=== PATIENT | female | born 1950 | race Caucasian/White ===

== ENCOUNTER 2019-10-22 19:11 | Inpatient (IN) | payer MEDICARE, OTHER ==
[~2019-10-22] VITALS: Ht 172.7 cm; Wt 100.5 kg
--- NOTE | 2019-10-22 19:11 | NUR ---
PT BIBPA SENT BY PMD FOR ABN LABS K-5.4, BUN-99, CA-8.2 AND ABN CXR. PT ON TRACH AND VENT DEPENDENT. NONVERBAL BASELINE. PT ON MONITOR IN BED 8. MD AT BEDSIDE. WILL CONTINUE TO MONITOR.
--- NOTE | 2019-10-22 19:48 | NUR ---
TECH AT BEDSIDE FOR EKG
--- NOTE | 2019-10-22 19:54 | NUR ---
FAMILY AT BEDSIDE
--- NOTE | 2019-10-22 19:57 | NUR ---
PHLEB AT BEDSIDE FOR BLOOD DRAW
[2019-10-22 20:09] LABS: BASOPHILS # (AUTO) 0.2 /CMM (0.0-0.2); BASOPHILS % (AUTO) 1.3 % (0.0-2.0); EOSINOPHILS % (AUTO) 0.7 % (0.0-6.0); HEMATOCRIT 29 % (33-45); HEMOGLOBIN 8.3 g/dL (11.5-14.8); LYMPHOCYTES % (AUTO) 5.8 % (20.0-44.0); MEAN CORPUSCULAR HGB CONC 29 g/dl (31.0-36.0); MEAN CORPUSCULAR VOLUME 81 fL (82-100); MONOCYTES % (AUTO) 5.9 % (2.0-12.0); NEUTROPHILS # (AUTO) 14.3 /CMM (1.8-8.9); NEUTROPHILS % (AUTO) 86.3 % (43.0-81.0); PLATELET COUNT (AUTO) 397 /CMM (150-450); RED BLOOD CELL COUNT(AUTO) 3.55 MIL/uL (4.0-5.2); WHITE BLOOD COUNT (AUTO) 16.6 K/uL (4.3-11.0)
[2019-10-22 20:27] LABS: BILIRUBIN,DIRECT 0.5 mg/dL (0.0-0.2); BILIRUBIN,TOTAL 0.6 mg/dL (0.2-1.0); CALCIUM, SERUM 7.9 mg/dL (8.5-10.1); CREATININE 0.7 mg/dL (0.6-1.3); POTASSIUM 5.2 mmol/L (3.5-5.1); TOTAL PROTEIN, SERUM 8.1 g/dL (6.4-8.2)
[2019-10-22 20:28] LABS: ALBUMIN 1.3 g/dL (3.4-5.0)
--- NOTE | 2019-10-22 20:29 | NUR ---
BUN 104. ALBUMIN 1.3. MD AWARE.
--- NOTE | 2019-10-22 20:58 | NUR ---
PAGED CHARLES BOTELLO
[2019-10-22] MEDS ORDERED: ALBUMIN 25% 12.5 GM/50 ML BOTTLE IV ONE ×2 (21:00→22:30)
[2019-10-22] MEDS ORDERED: MEROPENEM 500 MG in IV NS 0.9% 50 ML IV ONE (21:30)
[2019-10-22] MEDS ORDERED: MEROPENEM 500 MG VIAL IV ONE (21:33)
[2019-10-22] MEDS ORDERED: ALBUMIN 25% 100 ML IV ONE ×2 (21:33→23:41)
[2019-10-22 22:12] LABS: APPEARANCE,URINE Clear (CLEAR); BILIRUBIN,URINE Negative (NEGATIVE); BLOOD, URINE Negative Ery/uL (NEGATIVE); COLOR,URINE Yellow (YELLOW); KETONES,URINE Negative (NEGATIVE); LEUKOCYTE ESTERASE ,URINE Negative (NEGATIVE); NITRITE, URINE Negative (NEGATIVE); PH,URINE 5.5 (5.0-8.0); PROTEIN,URINE 30 mg/dl (NEGATIVE); UGLUCOSE Negative (NEGATIVE)
[2019-10-22] MEDS ORDERED: ACETAMINOPHEN 325 MG TABLET PO PRN (22:30)
[2019-10-22] MEDS ORDERED: VANCOMYCIN 2 GM in IV D5W 500 ML IV ONE (22:30)
[2019-10-22] MEDS ORDERED: Z GUARD REMEDY 2 OZ OINT TP PRN (22:30)
[2019-10-22] MEDS ORDERED: BUMETANIDE INJ 6 MG in IV NS 0.9% 36 ML IV ONE (22:30)
[2019-10-22] MEDS ORDERED: ONDANSETRON HCL/PF 4 MG/2 ML VIAL IVP PRN (22:30)
[2019-10-22 22:41] LABS: IRON, SERUM 21 ug/dl (50-175); TOTAL IRON BINDING CAPACITY 219 ug/dl (250-450)
[2019-10-22 23:03] LABS: CREATININE, URINE 31.1 MG/DL (30.0-125.0); URINE TOTAL PROTEIN 46.1 mg/dL (0-11.9)
--- NOTE | 2019-10-22 23:06 | NUR ---
Angie dick in [facility] - 10/22/19 at 2306 by MICHELINE PT TRANSPORTED TO [phone]
--- NOTE | 2019-10-22 23:22 | NUR ---
NURSE AT BEDSIDE FOR MIDLINE INSERTION
[2019-10-22] MEDS ORDERED: VANCOMYCIN 1 GM VIAL ONE (23:57)
--- NOTE | 2019-10-23 00:44 | NUR ---
Patient is resting comfortably in bed. VSS. Will continue to monitor.
--- NOTE | 2019-10-23 00:49 | NUR ---
REPORT GIVEN TO FLOOR NURSE FOR JESSI
[2019-10-23 01:24] VITALS: BP 123/77
--- NOTE | 2019-10-23 01:30 | NUR ---
military police officertowel hemmer notes Received Pt from ER nurse. Pt arrived at the unit with a TALI uribe protocol and [facility]. ventilator. Pt is non verbal and able to open eyes to touch and light pain. Respiration is normal. No SOB. No S/S of distress noted. SHARLENE midline is clean, intact, patent and infusing well vanco abx. Hill cath is intact, patent and draining yellow urine. Skin assessment is done and performed and pictures taken and placed at Pt's chart. Pt's belonging was checked by ALEXIS Cai. Admission orders received from Dr. Grimes. Safety precautions is maintained. Bed at low position, brakes locked, side rails upX3 and call light is within reach. Will continue to monitor.
[2019-10-23 02:00] VITALS: BP 123/77
[2019-10-23] MEDS: ENOXAPARIN SODIUM 40 MG/0.4 ML DISP.SYRIN SQ SCH ×2 (02:00→20:33)
--- NOTE | 2019-10-23 02:00 | NUR ---
rocket engine tester notes Received Pt from ER at 0130 am. Administered lovenox 40 mg as ordered. Call semiconductor wafers marker pharmacy Robert to verified lovenox 40 mg. Will continue to monitor.
--- NOTE | 2019-10-23 03:00 | NUR ---
operator weapon locating radar notes Informed and notified to Dr. Grimes about Pt's blood glucose check. Awaiting for orders. Will continue to monitor.
--- NOTE | 2019-10-23 03:20 | NUR ---
girls tennis coach notes Informed Dr. Grimes about Pt's G-tube is leaking.
--- NOTE | 2019-10-23 03:36 | NUR ---
automobile engine assembler notes MD order to changed the dressing on g-tube. Changed g-tube dressing. Pt tolerated activity well. will continue to monitor.
[2019-10-23 04:00] VITALS: BP 108/56
[2019-10-23] MEDS ORDERED: DEXTROSE 50%-WATER 50 ML DISP.SYRIN IV PRN (04:00)
[2019-10-23] MEDS ORDERED: MEROPENEM 1 G in IV NS 0.9% 100 ML IV ONE (05:00)
[2019-10-23] MEDS ORDERED: MEROPENEM 1 G in IV NS 0.9% 100 ML IV SCH (05:00)
[2019-10-23] MEDS ORDERED: MEROPENEM 1 G VIAL IV ONE (05:09)
[2019-10-23 06:36] LABS: BASOPHILS % (AUTO) 0.2 % (0.0-2.0); EOSINOPHILS % (AUTO) 0.7 % (0.0-6.0); HEMATOCRIT 25 % (33-45); HEMOGLOBIN 7.5 g/dL (11.5-14.8); LYMPHOCYTES % (AUTO) 5.6 % (20.0-44.0); MEAN CORPUSCULAR HGB CONC 30 g/dl (31.0-36.0); MEAN CORPUSCULAR VOLUME 80 fL (82-100); MONOCYTES % (AUTO) 5.4 % (2.0-12.0); NEUTROPHILS # (AUTO) 15.9 /CMM (1.8-8.9); NEUTROPHILS % (AUTO) 88.1 % (43.0-81.0); PLATELET COUNT (AUTO) 396 /CMM (150-450); RED BLOOD CELL COUNT(AUTO) 3.15 MIL/uL (4.0-5.2)
[2019-10-23] MEDS: BLOOD SUGAR DIAGNOSTIC 1 EACH STRIP IN SCH ×4 (06:40→21:27)
--- NOTE | 2019-10-23 06:50 | NUR ---
airport engineer notes Pt blood sugar is 143. No coverage is given because Pt's NPO due to G-tube is leaking. MD is aware. Charge nurse is aware and notified.
[2019-10-23 06:59] LABS: THYROID STIMULATING HORMONE 3.585 uIU/mL (0.358-3.74)
--- NOTE | 2019-10-23 07:00 | NUR ---
inking machine tender closing notes Pt is resting in bed comfortably. Respiration is normal. Pt is on mec. ventilator. No SOB. No S/s of distress noted. SHARLENE midline# 20 is clean, intact, patent and SL. Routine meds were given as ordered. VS is stable. Kept Pt clean, dry and comfortable. Safety precautions is maintained. Bed at low position, brakes locked, side rails upX3 and call light is within reach. Will endorse to morning nurse for JESSI.
[2019-10-23 07:10] LABS: ALBUMIN 1.8 g/dL (3.4-5.0); CALCIUM, SERUM 7.8 mg/dL (8.5-10.1); CREATININE 0.8 mg/dL (0.6-1.3); MAGNESIUM 2.9 mg/dL (1.8-2.4); POTASSIUM 3.9 mmol/L (3.5-5.1); TOTAL PROTEIN, SERUM 7.5 g/dL (6.4-8.2)
--- NOTE | 2019-10-23 07:15 | NUR ---
PLANNER SCHEDULER OPENING NOTES RECEIVED PATIENT IN BED ASLEEP, AROUSABLE TO VERBAL AND TACTILE STIMULI. HOB ELEVATED. NO S/S OF RESPIRATORY DISTRESS. ON TELE MONITORING A-FIB RATE OF 91. NO EVIDENCE OF PAIN NOR DISCOMFORT. GRADY CATH INTACT AND PATENT DRAINING YELLOW COLORED URINE VIA BEDSIDE. ON MECHANICAL VENT ORDERED ARNALDO WELL. BED IN LOWEST POSITION, LOCKED. SHARLENE MIDLINE INTACT AND PATENT. CALL LIGHT WITHIN REACH. BED SIDERAILS UP X2.
[2019-10-23] MEDS ORDERED: BLOOD SUGAR DIAGNOSTIC 1 EACH STRIP IN SCH (07:30)
[2019-10-23 07:33] LABS: BAND % (MANUAL) 5 % (0.0-5.0); EOSINOPHILS % (MANUAL) 1 % (0-4); LYMPHOCYTES % (MANUAL) 5 % (16-48); METAMYELOCYTES % 1 % (0-0); MONOCYTES % (MANUAL) 7 % (0-11.0); MYELOCYTES % 3 % (0-0); NEUTROPHILS % (MANUAL) 77 (42-76); PROMYELOCYTES % 1 % (0-0)
[2019-10-23 08:00] VITALS: BP 108/53
[2019-10-23] MEDS ORDERED: CHLO473M5 MM (08:25)
[2019-10-23] MEDS ORDERED: HYDR-4354 GT (08:25)
[2019-10-23] MEDS ORDERED: INSU100V3 SQ (08:25)
[2019-10-23] MEDS ORDERED: NUTR1PAC14 GT (08:25)
[2019-10-23] MEDS ORDERED: NUT.237L31 GT (08:25)
[2019-10-23] MEDS ORDERED: HEPA50008 SQ (08:25)
[2019-10-23] MEDS ORDERED: HYDR4TAB57 GT (08:25)
[2019-10-23] MEDS ORDERED: LEVA0.6320 IH ×2 (08:25)
[2019-10-23] MEDS ORDERED: BISA10SU11 RC (08:25)
[2019-10-23] MEDS ORDERED: CHLO118L6 TP (08:25)
[2019-10-23] MEDS ORDERED: NA P133E RC (08:25)
[2019-10-23] MEDS ORDERED: LEVE100S GT (08:25)
[2019-10-23] MEDS ORDERED: OMEP20CA15 GT (08:25)
[2019-10-23] MEDS ORDERED: FERR300L GT (08:25)
[2019-10-23] MEDS ORDERED: AMIN30LI2 GT (08:25)
[2019-10-23] MEDS ORDERED: DOCU250C14 GT (08:25)
[2019-10-23] MEDS ORDERED: METO5SOL2 GT (08:25)
[2019-10-23] MEDS ORDERED: DIGO125T GT (08:25)
[2019-10-23] MEDS ORDERED: VIT500LI GT (08:25)
[2019-10-23] MEDS ORDERED: LORA-259 GT (08:25)
[2019-10-23] MEDS ORDERED: FURO-144 GT (08:25)
[2019-10-23] MEDS ORDERED: METO25TA20 GT (08:25)
[2019-10-23] MEDS ORDERED: MAGN400O6 GT (08:25)
[2019-10-23] MEDS ORDERED: PHEN64.8 GT (08:25)
[2019-10-23] MEDS ORDERED: MULT-447 GT (08:25)
[2019-10-23 09:37] LABS: ABG BASE EXCESS 7.5 mmol/L; ABG OXYGEN SATURATION 97.2 % (92.0-98.5); ABG PCO2 43.2 mmHg (35.0-45.0); ABG PH 7.483 (7.350-7.450); ABG PO2 103.2 mmHg (75.0-100.0); AaDO2 132.3 mmHg; COHb 0.5 % (0.5-1.5); MetHb 0.5 % (0.0-1.5); O2Hb 96.2 % (94.0-97.0); SITE, ABG Left Radial; VENT MODE, BG AC 18 450 40% +5
--- NOTE | 2019-10-23 11:25 | NUR ---
WOUND CARE CONSULT: PT PRESENTS WITH SACRAL SCARRING AND GENERALIZED EDEMA, LEAKING G TUBE (CLAMPED) AND BLANCHABLE REDNESS TO HEELS, PRESENT ON ADMISSION. RECOMMENDATIONS MADE FOR SKIN PROTECTION. DISCUSSED WITH NURSING STAFF. RN TO DISCUSS G TUBE WITH MD TODAY. PT NOTED TO BE HAVING VERY LOOSE STOOL. FIRST STEP LOW AIRLOSS MATTRESS ORDERED. CURRENT ERASTO SCORE IS 11. WILL SEE PRN. MD IN AGREEMENT WITH PLAN OF CARE. Addendum: 10/23/19 at 1126 by FERNANDO HUERTA WNDNU Amended: Links added.
[2019-10-23] MEDS: MEROPENEM 1 G in IV NS 0.9% 100 ML IV SCH ×2 (12:45→20:33)
--- NOTE | 2019-10-23 13:24 | NUR ---
NO CONSENT SIGNED AT THIS TIME, INFORMED RN THAT THE PTOCEDURE WILL BE DONE TOMORROW, TO HOLD THE LOVENOX TODAY
[2019-10-23] MEDS ORDERED: FEE PK DOSING 1 MIN EA MC ONE (13:34)
[2019-10-23] MEDS ORDERED: Sodium Phosphate 15 MMOL in IV D5W 250 ML IV ONE (14:00)
[2019-10-23 16:00] VITALS: BP 99/71
--- NOTE | 2019-10-23 18:52 | NUR ---
DOCUMENTATION LIAISON CLOSING NOTES PATIENT ASLEEP IN BED, AROUSABLE TO VERBAL AND TACTILE STIMULI. OPENS EYES. HOB ELEVATED. NO SOB. ON TELE MONITORING A-FIB RATE OF 90. NO EVIDENCE OF PAIN NOR DISCOMFORT. GRADY CATH INTACT AND PATENT DRAINING YELLOW COLORED URINE VIA BEDSIDE. RECTAL TUBE INTACT WITH NO BM AT THIS TIME. ON MECHANICAL VENT ORDERED ARNALDO WELL. BED IN LOWEST POSITION, LOCKED. SHARLENE MIDLINE INTACT AND PATENT. CALL LIGHT WITHIN REACH. BED SIDERAILS UP X2. IN NO APPARENT DISTRESS.
[2019-10-23] MEDS: VANCOMYCIN 1.5 GM in IV D5W 500 ML IV SCH (18:56)
--- NOTE | 2019-10-23 19:00 | NUR ---
vehicle care specialist opening notes Received Pt from morning nurse. Pt is resting in bed comfortably. Pt is on [facility]. ventilator as ordered. Respiration is normal. No SOB. No S/S of distress noted. SHARLENE midline# 20 is clean, intact and infusing well. Tele monitor showed a-fib HR at 95. Tube feeding is still leaking. Hill cath is clean, intact, patent and draining yellow urine. Rectal tube is intact and patent. Safety precautions is maintained. Bed at low position, brakes locked, side rails upX3 and call light is within reach. Will continue to monitor.
--- NOTE | 2019-10-23 19:30 | NUR ---
golf coach notes Called Pt's multiple times to get a verbal consent for US guided thoracentesis. Will try again later.
[2019-10-23 20:00] VITALS: BP 104/42
--- NOTE | 2019-10-23 20:34 | NUR ---
resident associate notes Held lovenox 40 mg inj because Pt is going for US guided thoracentesis early childhood lead teacher.
--- NOTE | 2019-10-23 21:33 | NUR ---
support clerk notes Pt's blood sugar is 175. Held regular insulin because Pt's gtube site is leaking. MD is aware. Pt is non verbal and unable to comprehend. Will continue to monitor.
[2019-10-24] VITALS: BP 106/58
[2019-10-24 04:00] VITALS: BP 121/62
[2019-10-24] MEDS: MEROPENEM 1 G in IV NS 0.9% 100 ML IV SCH ×3 (04:17→21:24)
--- NOTE | 2019-10-24 06:35 | NUR ---
auto clocks repairer notes Pt's blood sugar is 99 no coverage is given. Will continue to monitor.
--- NOTE | 2019-10-24 06:59 | NUR ---
airport skilled maintenance supervisor closing notes Pt is resting in bed comfortably. Pt is on [facility]. ventilator as ordered. Respiration is normal. No SOB. No S/S of distress noted. SHARLENE midline# 20 is clean, intact and patent. R forearm # 22 is clean, intact and patent. Tele monitor showed a-fib HR at 96. Hill cath is clean, intact, patent and draining yellow urine. Rectal tube is intact and patent. Safety precautions is maintained. Bed at low position, brakes locked, side rails upX3 and call light is within reach. Will endorse to morning nurse for JESSI..
--- NOTE | 2019-10-24 07:50 | NUR ---
LABORER WRECKING AND SALVAGING NOTES PATIENT RESTING INSIDE ROOM. SLEEPING, OPENS EYES TO STIMULI. NON-VERBAL. TRACH IN PLACE, TOLERATING VENT SETTINGS. GRADY IN PLACE WITH YELLOW URINE OUTPUT NOTED. RECTAL TUBE IN PLACE. GT IN PLACE, NO FEEDING AT THIS TIME. SORTER UPHOLSTERY PARTS IN PLACE, AFIB 90'S. SAFETY PRECAUTIONS IN PLACE. ASPIRATION PRECAUTIONS IN PLACE. WILL CONTINUE TO MONITOR. BED LOCKED AND IN LOW POSITION. SIDE RAILS UP X3. CALL LIGHT WITHIN EASY REACH
[2019-10-24 08:00] VITALS: BP 82/49
[2019-10-24 08:01] LABS: CALCIUM, SERUM 7.7 mg/dL (8.5-10.1); CREATININE 0.8 mg/dL (0.6-1.3); PHOSPHORUS 3.3 mg/dL (2.5-4.9); POTASSIUM 3.6 mmol/L (3.5-5.1)
[2019-10-24] MEDS: BLOOD SUGAR DIAGNOSTIC 1 EACH STRIP IN SCH ×4 (09:06→21:34)
--- NOTE | 2019-10-24 11:10 | NUR ---
COIL WRAPPER NOTES PATIENT SEEN AND EXAMINED BY ROCHELLE LAMBERT DNP, GT ASSESSED AND FLUSHED. PER HOSPITALIST, OK TO RESUME FEEDING WHEN POSSIBLE BUT HOLD AT THIS TIME WERE STILL WAITING FOR THORACENTESIS, MADE AWARE THAT YOSEF STILL HASNT CALLED TO GIVE CONSENT. WILL CONTINUE TO FOLLOW-UP.
--- NOTE | 2019-10-24 11:14 | NUR ---
HOSPICE ADMITTING CLERK NOTES PLACED CALL TO YOSEF ([phone]) TO FOLLOW-UP REGARDING CONSENT FOR THORACENTESIS. NO ANSWER ON PHONE, LEFT MESSAGE ON VOICEMAIL. ROCHELLE LAMBERT DNP PRESENT AT UNIT MADE AWARE. WITH ORDER TO CONTINUE TO HOLD GTF FOR ANTICIPATION OF THORACENTESIS. ORDER NOTED AND CARRIED OUT. WILL CONTINUE TO MONITOR
[2019-10-24] MEDS: VANCOMYCIN 1.5 GM in IV D5W 500 ML IV SCH (12:00)
--- NOTE | 2019-10-24 12:31 | NUR ---
BEAD MACHINE OPERATOR NOTES PT VANCO TROUGH LEVEL 28, WILL HOLD NEXT DOSE OF VANCOMYCIN. CALLED PHARMACY AND NOTIFIED.
--- NOTE | 2019-10-24 12:44 | NUR ---
NOW PER RN, STILL NO CONSENT SIGNED, WAITING FOR THE CONSENT TO BE SIGNED IN ORDER TO PERFORM THE PROCEDURE
[2019-10-24 16:00] VITALS: BP 74/57
--- NOTE | 2019-10-24 16:18 | NUR ---
TRANSPORTATION SOLUTIONS MANAGER NOTES PT BP 74/57, RECHECKED BP 80/47. PLACED CALL TO ROCHELLE LAMBERT DNP, WITH NEW ORDER OF NS 500 CC BOLUS X 1. ORDER NOTED AND CARRIED OUT. WILL CONTINUE TO MONITOR.
[2019-10-24] MEDS ORDERED: IV NS 0.9% 500 ML BAG IV ONE (16:30)
--- NOTE | 2019-10-24 17:01 | NUR ---
AIR EXPORT OPERATIONS AGENT NOTES MULTIPLE CALLS PLACED TO YOSEF ([phone]) BUT WITH NO ANSWER, LEFT MESSAGES ON VOICEMAIL TO CALL BACK. ROCHELLE LAMBERT DNP AWARE. WILL CONTINUE TO MONITOR
[2019-10-24] MEDS ORDERED: IV 1/2NS 1000 ML 1,000 ML IV PRN (17:11)
--- NOTE | 2019-10-24 18:52 | NUR ---
HEAD USHER NOTES YOSEF AT BEDSIDE. INFORMED REGARDING THORACENTESIS PROCEDURE BUT DOES NOT WANT TO DISCUSS AT THIS TIME. RISKS AND BENEFITS EXPLAINED BUT TO NO AVAIL. PATIENT'S VERY PARTICULAR OF FOCUSING AT PATIENT AT THIS TIME AND CURSING AT NURSING STAFF STATING HE WILL DISCUSS PROCEDURES LATER. WILL ENDORSE TO INCOMING SHIFT
--- NOTE | 2019-10-24 18:57 | NUR ---
MACHINE SHOP LEAD MAN NOTES PATIENT RESTING INSIDE ROOM. CONTINUE ON VENT, TOLERATING CURRENT SETTINGS. CONTINUE HOLDING GTF, ROCHELLE LAMBERT DNP AWARE. MAINTAINED ASPIRATION PRECAUTIONS. GRADY CATH IN PLACE WITH YELLOW URINE OUTPUT NOTED ON COLLECTING BAG. RECTAL TUBE IN PLACE WITH DARK BROWN LIQUID BOWEL MOVEMENT IN COLLECTING BAG, STOOL SPECIMEN BROUGHT TO LAB FOR OCCULT BLOOD AND C-DIFF. ANTISQUEAK APPLIER IN PLACE, AFIB 80'S. WILL ENDORSE TO INCOMING SHIFT FOR JESSI. BED LOCKED AND IN LOW POSITION. SIDE RAILS UP X 3. CALL LIGHT WITHIN EASY REACH
[2019-10-24 19:13] LABS: OCCULT BLOOD STOOL NEGATIVE (NEGATIVE)
[2019-10-24 20:00] VITALS: BP 93/55
[2019-10-24] MEDS: ALBUMIN 25% 25 GM in PREMIX 1 EA IV SCH ×2 (20:30→22:40)
[2019-10-24] MEDS: ENOXAPARIN SODIUM 40 MG/0.4 ML DISP.SYRIN SQ SCH (21:00)
--- NOTE | 2019-10-24 21:02 | NUR ---
RN NOTES: PATIENT'S SIGNED THE CONSENT FOR US GUIDED THORACENTESIS AND ATTACHED IN THE CHART. PATIENT IN BED, NON VERBAL. BED IN LOWEST AND LOCKED POSITION. AT THE BEDSIDE. 3 SIDERAILS UP. APPLIED MEPILEX ON BOTH HEELS AND OFFLOADED. WITH GRADY CATH INTACT AND DRAINING CLEAR YELLOW URINE. WITH RECTAL TUBE DRAINING BROWNISH WATERY STOOL. WITH EDEMA ON ALL EXTREMETIES.WITH TRACH. NOT IN RESPIRATORY DISTRESS. PATIENT APPEARS COMFORTABLE. HOB ELEVATED. NO SECRETIONS NOTED. NO COUGHING. RT CAME ABOUT AN HOUR AGO AND SUCTIONED THE PATIENT'S TRACH. PATIENT IS CONNECTED TO THE PULSE OXIMETER MONITORING, WITH O2 SAT OF 99%. SIDERAILS PADDED WITH BLANKETS.
--- NOTE | 2019-10-24 21:12 | NUR ---
BED IN LOWEST AND LOCKED POSITION AND ALARM ON.
--- NOTE | 2019-10-24 21:34 | NUR ---
BLOOD SUGAR [id number], NO INSULIN GIVEN.
--- NOTE | 2019-10-24 21:40 | NUR ---
PATIENT'S GAVE THE CORRECT PHONE NUMBER= [phone], WILL ENDORSE AND CHART CORRECTED.
[2019-10-25] VITALS: BP 103/63
--- NOTE | 2019-10-25 | NUR ---
according to MANAGEMENT PLANNERAlfonso RUFF PATIENT'S REFUSED THE PATIENT TO BE TURNED.
[2019-10-25] MEDS: ALBUMIN 25% 25 GM in PREMIX 1 EA IV SCH ×2 (00:47→02:35)
[2019-10-25 02:00] VITALS: BP 95/40
[2019-10-25] MEDS: MEROPENEM 1 G in IV NS 0.9% 100 ML IV SCH ×3 (04:55→22:34)
--- NOTE | 2019-10-25 04:58 | NUR ---
PATIENT'S CHANGED THE TRACHEOSTOMY DRESSING AND SUCTIONED THE PATIENT. TURNED THE PATIENT TO THE LEFT SIDE, AND HEELS ARE OFFLOADED.
[2019-10-25 05:03] VITALS: BP 95/40
[2019-10-25] MEDS: BLOOD SUGAR DIAGNOSTIC 1 EACH STRIP IN SCH ×4 (06:49→22:00)
--- NOTE | 2019-10-25 06:49 | NUR ---
BLOOD SUGAR FINGERSTICK=84, NO INSULIN GIVEN.
[2019-10-25 07:16] LABS: BASOPHILS % (AUTO) 0.4 % (0.0-2.0); EOSINOPHILS % (AUTO) 0.8 % (0.0-6.0); HEMATOCRIT 25 % (33-45); HEMOGLOBIN 7.5 g/dL (11.5-14.8); LYMPHOCYTES # (AUTO) 0.5 /CMM (0.8-4.8); LYMPHOCYTES % (AUTO) 4.2 % (20.0-44.0); MEAN CORPUSCULAR HGB CONC 30 g/dl (31.0-36.0); MEAN CORPUSCULAR VOLUME 79 fL (82-100); MONOCYTES # (AUTO) 0.8 /CMM (0.1-1.30); MONOCYTES % (AUTO) 6.6 % (2.0-12.0); NEUTROPHILS # (AUTO) 10.7 /CMM (1.8-8.9); PLATELET COUNT (AUTO) 300 /CMM (150-450); RED BLOOD CELL COUNT(AUTO) 3.15 MIL/uL (4.0-5.2); WHITE BLOOD COUNT (AUTO) 12.2 K/uL (4.3-11.0)
[2019-10-25 07:40] LABS: ALBUMIN 2.8 g/dL (3.4-5.0); BILIRUBIN,TOTAL 1.4 mg/dL (0.2-1.0); CALCIUM, SERUM 7.8 mg/dL (8.5-10.1); CREATININE 0.6 mg/dL (0.6-1.3); MAGNESIUM 2.9 mg/dL (1.8-2.4); PHOSPHORUS 3.2 mg/dL (2.5-4.9); POTASSIUM 2.9 mmol/L (3.5-5.1); TOTAL PROTEIN, SERUM 7.2 g/dL (6.4-8.2)
--- NOTE | 2019-10-25 07:57 | NUR ---
INSURANCE SALES SUPERVISOR NOTES PATIENT RECEIVED RESTING INSIDE ROOM. OBTUNDED. NO ACUTE DISTRESS. TOLERATING VENT SETTINGS. MAINTAINED ASPIRATION PRECAUTIONS. CONTINUE TO HOLD GTF AT THIS TIME. AWAITING THORACENTESIS. GRADY CATH IN PLACE WITH YELLOW URINE OUTPUT NOTED ON COLLECTING BAG. RECTAL TUBE IN PLACE WITH LIQUID BLACKISH/DARK BROWN STOOL OUTPUT ON COLLECTING BAG. YOSEF AT BEDSIDE. DIRECTOR OF PROPERTY MANAGEMENT IN PLACE, AFIB 79. WILL CONTINUE TO MONITOR. BED LOCKED AND IN LOW POSITION. SIDE RAILS UP X 3. CALL LIGHT WITHIN EASY REACH
[2019-10-25 08:00] VITALS: BP 122/64
[2019-10-25] MEDS ORDERED: VANCOMYCIN 1.25 GM in IV D5W 250 ML IV SCH (08:00)
--- NOTE | 2019-10-25 12:10 | NUR ---
LAND CONSERVATION SPECIALIST NOTES PATIENT'S , YOSEF AT BEDSIDE. REFUSED TO HAVE THORACENTESIS DONE, RISKS AND BENEFITS EXPLAINED BUT TO NO AVAIL. DR RAYMOND SPOKE WITH YOSEF BUT STILL CONTINUE TO REFUSE. ULTRASOUND MADE AWARE. WILL CNTINUE TO MONITOR
[2019-10-25] MEDS: POTASSIUM CL. PREMIX PERIPHER. 50 ML IV SCH ×6 (12:12→22:32)
--- NOTE | 2019-10-25 12:45 | NUR ---
Spoken to PAM Dooley regarding U/S guided thoracentesis and he mentioned that patient's is refusing the procedure to be done.
[2019-10-25] MEDS ORDERED: NA PHOS,M-B/NA PHOS,DI-BA 1 EA ENEMA RC PRN (13:30)
[2019-10-25] MEDS: SOD FERRIC GLUC 125 MG in IV NS 0.9% 100 ML IV SCH (15:38)
[2019-10-25 16:00] VITALS: BP 133/73
[2019-10-25] MEDS: PROSOURCE / PROSTAT (PYXIS) 30 ML UDC GT SCH ×2 (17:00→18:05)
[2019-10-25] MEDS: METOCLOPRAMIDE HCL 10 MG/10 ML UDC GT SCH ×3 (17:00→21:01)
[2019-10-25] MEDS ORDERED: ARGININE/GLUTAMINE/CALCIUM BMB 1 EACH POWD.PACK GT SCH (17:00)
--- NOTE | 2019-10-25 17:23 | NUR ---
MISSILE INSPECTOR PREFLIGHT NOTES DR BELLO WITH NEW ORDERS TO RESUME GTF GIVE AT [facility]. ORDERS NOTED AND CARRIED OUT. FNS MADE AWARE TO PROVIDE GT FORMULA. WILL CONTINUE TO MONITOR
[2019-10-25] MEDS: GLUCERNA 1.2 1,000 ML BOTTLE GT PRN ×2 (18:05→23:44)
--- NOTE | 2019-10-25 18:21 | NUR ---
INTERNET SOURCER NOTES PATIENT'S , YOSEF ARRIVED AT BEDSIDE. COMPLAINING ABOUT HOW HOT ROOM THE ROOM IS. EXPLAINED TO THE THAT ITS COOL INSIDE THE ROOM BUT INSISTING ON WANTING TO HAVE AC ON TO MAKE ROOM TEMPERATURE COLDER. REFUSING TO HAVE PROSTAT AND REGLAN. RISKS AND BENEFITS EXPLAINED BUT TO NO AVAIL. YOSEF STRONGLY EXCLAIMED, "DONT GIVE HER NOTHING, DONT TOUCH HER". ALSO REFUSED TO HAVE GTF STARTED, STATED THAT HE WANTS NEXT SHIFT TO START FEEDING. CHARGE NURSE AWARE. MD AWARE. WILL CONTINUE TO MONITOR
--- NOTE | 2019-10-25 18:41 | NUR ---
JAVA J2EE ARCHITECT NOTES PATIENT RESTING INSIDE ROOM, ACCOMPANIED BY . PATIENT NON-VERBAL, OPENS EYES TO STIMULI. TRACH IN PLACE AND TOLERATING VENT SETTINGS. MAINTAIN ASPIRATION PRECAUTION. GRADY CATHETER IN PLACE WITH YELLOW/CLEAR URINE OUTPUT. RECTAL TUBE IN PLACE WITH LIQUID BROWN STOOL. SHELL CORE AND MOLDING SUPERVISOR IN PLACE WITH AFIB, 80S. SAFETY PRECAUTION IN PLACE, BED LOCKED AND SIDE RAILS UP X 3, CALL LIGHT WITH IN EASY REACH. WILL ENDORSE TO INCOMING SHIFT FOR JESSI.
--- NOTE | 2019-10-25 18:57 | NUR ---
MEDICAL CENTER REPRESENTATIVE NOTES PATIENT'S AT BEDSIDE TURNING OFF IV FLUIDS AND IV POTASSIUM PUMP. RISKS AND BENEFITS EXPLAINED BUT TO NO AVAIL. PATIENT YELLING, "I DONT CARE! I TURN IT OFF!" CHARGE NURSE AWARE AND SEEN PATIENT AND .
[2019-10-25] MEDS: ALBUTEROL FS 2.5 MG/3 ML VIAL.NEB NEB SCH (19:04)
--- NOTE | 2019-10-25 19:21 | NUR ---
RECEIVED PATIENT IN BED, AWAKE, NON VERBAL. NOT IN RESPIRATORY DISTRESS, NOT MOANING. APPEARS COMFORTABLE. AT THE BEDSIDE. HOB ELEVATED. IV POTASSIUM AND IVF ARE TURNED OFF. IV POTASSIUM RESUMED. GRADY CATH INTACT.
--- NOTE | 2019-10-25 19:46 | NUR ---
RECEIVED PATIENT WITH DISTENDED ABDOMEN.
[2019-10-25 20:00] VITALS: BP 114/68
[2019-10-25] MEDS: HEPARIN SODIUM, PORCINE 5000 UNITS/1 ML VIAL SQ SCH (21:00)
[2019-10-25] MEDS: LEVETIRACETAM SOL (5 ML) 100 MG/ML UDC GT SCH (21:01)
[2019-10-25] MEDS: CHLORHEXIDINE GLUCONATE 15 ML UDC MM SCH (21:01)
[2019-10-25] MEDS: METOPROLOL TARTRATE 25 MG TABLET GT SCH (21:02)
[2019-10-25] MEDS: PHENOBARBITAL 30 MG TABLET GT SCH (21:02)
--- NOTE | 2019-10-25 22:40 | NUR ---
AT THE BEDSIDE. PATIENT'S O2 SAT=99%.
--- NOTE | 2019-10-25 22:40 | NUR ---
blood sugar fingerstick=94, no insulin given.
--- NOTE | 2019-10-25 23:40 | NUR ---
G-TUBE PATENCY CHECKED, IT'S PATENT. DRESSING IS DRY AND INTACT. HOB ELEVATED. AT THE BEDSIDE. PATIENT'S REFUSED THE IVF /2 NS.
[2019-10-26] VITALS: BP 109/61
[2019-10-26] MEDS: LORAZEPAM 1 MG TABLET GT PRN ×2 (00:04→06:20)
--- NOTE | 2019-10-26 01:10 | NUR ---
PATIENT'S REFUSED THE PATIENT TO BE TURNED TONIGHT ASSISTANT FEDERAL PUBLIC DEFENDER REPORTED.
[2019-10-26] MEDS: ALBUTEROL FS 2.5 MG/3 ML VIAL.NEB NEB SCH ×4 (01:25→20:06)
[2019-10-26 04:00] VITALS: BP 106/60
[2019-10-26] MEDS: MEROPENEM 1 G in IV NS 0.9% 100 ML IV SCH ×3 (04:24→21:00)
[2019-10-26] MEDS: HEPARIN SODIUM, PORCINE 5000 UNITS/1 ML VIAL SQ SCH ×3 (04:25→23:05)
[2019-10-26] MEDS: HYDROMORPHONE HCL 2 MG TABLET GT PRN ×2 (04:34→17:01)
[2019-10-26 04:48] VITALS: BP 106/60
--- NOTE | 2019-10-26 05:11 | NUR ---
RT NOTES RECEIVED PATIENT ON VENT WITH ORDERED SETTINGS. ALARMS ON AN AUDIBLE. VENT PLUGGED IN TO RED OUTLET. TRACH TUBE IN PLACE, PATENT, AND SECURED WITH TRACH TIE.AMBU BAG AND BACK UP TRACH BY THE BEDSIDE. NO RESP DISTRESS AT THIS TIME. Addendum: 10/26/19 at 0511 by LISANDRA PADILLA RT Amended: Links added.
--- NOTE | 2019-10-26 05:25 | NUR ---
RN CLOSING NOTES: PATIENT IN BED. NOT IN RESPIRATORY DISTRESS. NOT IN PAIN. PATIENT'S WANTS THE MERREM IV TO STOP RIGHT NOW,DONE. DESPITE OF TELLING HIM THE IMPORTANCE OF THE MED. HE INSISTED. PATIENT'S WANTS ALSO TO HAVE THE RECTAL TUBE BE REMOVED-DONE, AND HE WANTS THE GRADY CATH TO BE REMOVED ALSO-DONE. CLEANED THE PATIENT, KEPT DRY AND DIAPER PLACED. Z-GUARD CREAM AND MEPILEX DRESSING APPLIED ON THE SACRAL AREA FOR PROTECTION. AND TURNED THE PATIENT TO THE LEFT SIDE, HEELS OFFLOADED AT ALL TIMES. BED IN LOWEST AND LOCKED POSITION.
[2019-10-26] MEDS: BLOOD SUGAR DIAGNOSTIC 1 EACH STRIP IN SCH ×4 (06:45→22:53)
--- NOTE | 2019-10-26 06:45 | NUR ---
BLOOD SCUWG=495, NO INSULIN GIVEN.
[2019-10-26 07:48] LABS: CALCIUM, SERUM 8.1 mg/dL (8.5-10.1); CREATININE 0.6 mg/dL (0.6-1.3); MAGNESIUM 2.9 mg/dL (1.8-2.4); PHOSPHORUS 3.1 mg/dL (2.5-4.9); POTASSIUM 3.7 mmol/L (3.5-5.1)
--- NOTE | 2019-10-26 07:53 | NUR ---
MOBILE LOUNGE DRIVER OPENING NOTE PATIENT IN BED RESTING COMFORTABLY. PATIENT IN NO ACUTE DISTRESS. NO SOB NOTED. PATIENT BREATHING IS EVEN AND UNLABORED. PATIENT TOLERATING VENT SETTINGS WELL. AT THE BEDSIDE. IS REFUSING THORACENTESIS AT THIS TIME. PATIENT ON CARDIAC MONITORING READING SINUS RHYTHM HR 84. PATIENT BED IS LOCKED AND IN LOWEST POSITION. HOB IS ELEVATED. BED ALARM IS ON. CALL LIGHT WITHIN REACH. WILL CONTINUE TO MONITOR.
[2019-10-26 08:00] VITALS: BP 115/63
[2019-10-26 08:05] LABS: BASOPHILS % (AUTO) 0.3 % (0.0-2.0); EOSINOPHILS % (AUTO) 1.3 % (0.0-6.0); HEMATOCRIT 32 % (33-45); HEMOGLOBIN 9.4 g/dL (11.5-14.8); LYMPHOCYTES # (AUTO) 0.8 /CMM (0.8-4.8); LYMPHOCYTES % (AUTO) 6.5 % (20.0-44.0); MEAN CORPUSCULAR HGB CONC 30 g/dl (31.0-36.0); MEAN CORPUSCULAR VOLUME 81 fL (82-100); MONOCYTES # (AUTO) 1.1 /CMM (0.1-1.30); MONOCYTES % (AUTO) 8.9 % (2.0-12.0); NEUTROPHILS # (AUTO) 10.2 /CMM (1.8-8.9); PLATELET COUNT (AUTO) 296 /CMM (150-450); RED BLOOD CELL COUNT(AUTO) 3.91 MIL/uL (4.0-5.2); WHITE BLOOD COUNT (AUTO) 12.2 K/uL (4.3-11.0)
--- NOTE | 2019-10-26 08:13 | NUR ---
PER RN REFUSING THE THORACENTESIS AGAIN, , INFORMED RN THAT THE PROCEDURE IS ON HOLD FOR 4 DAYS FOR THE SAME REASON
[2019-10-26] MEDS: FERROUS SULFATE UDC 300 MG/5 ML UDC GT SCH (09:40)
[2019-10-26] MEDS: CHLORHEXIDINE GLUCONATE 15 ML UDC MM SCH ×2 (09:40→21:11)
[2019-10-26] MEDS: DIGOXIN 0.125 MG TABLET GT SCH (09:40)
[2019-10-26] MEDS: LEVETIRACETAM SOL (5 ML) 100 MG/ML UDC GT SCH ×2 (09:40→21:03)
[2019-10-26] MEDS: PHENOBARBITAL 30 MG TABLET GT SCH ×2 (09:40→21:11)
[2019-10-26] MEDS: DOCUSATE SODIUM 250 MG CAPSULE PO SCH (09:41)
[2019-10-26] MEDS: ASCORBIC ACID 500 MG TABLET GT SCH (09:41)
[2019-10-26] MEDS: METOPROLOL TARTRATE 25 MG TABLET GT SCH ×2 (09:41→21:10)
[2019-10-26] MEDS: PANTOPRAZOLE 40 MG/PACK PACK GT SCH (09:41)
[2019-10-26] MEDS: MULTIVIT W/MINERALS 1 TAB TABLET GT SCH (09:42)
[2019-10-26] MEDS: PROSOURCE / PROSTAT (PYXIS) 30 ML UDC GT SCH ×2 (09:47→16:58)
[2019-10-26] MEDS: METOCLOPRAMIDE HCL 10 MG/10 ML UDC GT SCH ×4 (09:47→21:05)
[2019-10-26] MEDS: INSULIN REGULAR, HUMAN 100 UNIT/ML 3 ML VIAL SQ PRN ×3 (11:28→23:06)
--- NOTE | 2019-10-26 12:05 | NUR ---
ASSISTANT TEACHING PROFESSOR NOTE INFORMED DR. RAYMOND REGARDING PATIENTS HUSBANDS REFUSAL OF THORACENTESIS. NO NEW ORDERS AT THIS TIME. WILL CONTINUE TO MONITOR
[2019-10-26] MEDS: SOD FERRIC GLUC 125 MG in IV NS 0.9% 100 ML IV SCH (14:02)
--- NOTE | 2019-10-26 15:14 | NUR ---
PT RECEIVED TRACHED ON MECHANICAL VENT W/ NOTED SETTINGS. VENT IN RED OUTLET, AMBUBAG AND SPARE TRACH AT BEDSIDE. VENT ALARMS CHECKED AND AUDIBLE. PT SX'ED PRN. NO RESP DISTRESS NOTED. REPORT GIVEN TO TRANSPORT RT UPON DISCHARGE. Addendum: 10/26/19 at 1515 by SHERRY ERIC RT Amended: Links added.
[2019-10-26 16:00] VITALS: BP 114/63
--- NOTE | 2019-10-26 17:21 | NUR ---
UNINDENTURED APPRENTICE NOTE PATIENTS REFUSING TO HAVE IVF ONGOING. CONTINUES TO REFUSE THORACENTESIS. MD AWARE.
--- NOTE | 2019-10-26 18:23 | NUR ---
AUTOMOBILE MECHANIC ASSISTANT CLOSING NOTE PATIENT IN BED RESTING COMFORTABLY. PATIENT TOLERATING VENT SETTINGS WELL. PATIENT TURNED AND REPOSITIONED MUCH WOULD ALLOW. PATIENT KEPT CLEAN DRY AND COMFORTABLE. PATIENT HOB IS ELEVATED. PATIENT BREATHING IS EVEN AND UNLABORED. PATIENT IN NO ACUTE DISTRESS. NO SOB NOTED. AT THE BEDSIDE. CONTINUES TO REFUSE IVF. DISCUSSED RISKS VS BENEFITS, PATIENT CONTINUED TO REFUSE. PATIENT EXTREMITIES OFFLOADED ON PILLOWS. PATIENT ON CARDIAC MONITORING READING SINUS RHYTHM HR 92. PATIENT BED ALARM IS ON. SAFETY PRECAUTIONS IN PLACE. PATIENT BED IS LOCKED AND IN LOWEST POSITION. CALL LIGHT WITHIN REACH. WILL ENDORSE CARE TO PM SHIFT FOR JESSI.
--- NOTE | 2019-10-26 19:30 | NUR ---
MANAGER ETHICS NOTES RECEIVED ON BED,OPEN EYES,NON VERBAL,FULL CODE,ON TRACH TO VENT,SETTINGS TOLERATED WELL. AT BEDSIDE IN CONTROL ABOUT MEDS IVF,FEEDING WHEN YOU GONNA ADMINISTER IT.WITH RIGHT UPPER ARM MIDLINE INTACT AND PATENT,RIGHT ARM NOTED SLIGHT REDNESS AND PITTING EDEMA NOTED,ELEVATED ON PILLOWS.WITH GT,FEEDING ON HOLD PER REQUEST.IVF FLUIDS ALSO ON HOLD PER REQUEST.WILL INFORM THE NURSE WHEN TO RE START IT.GT CARE RENDERED BY ,WITH NURSE AT BEDSIDE. IS VERY MUCH INVOLVED WITH PATIENT CARE.INCONTINENT BOTH URINE AND BOWEL.WILL CONTINUE TO MONITOR STATUS.
[2019-10-26 20:00] VITALS: BP 100/60
--- NOTE | 2019-10-26 20:06 | NUR ---
RT NOTES PT RECEIVED TRACHED ON [facility] VENT ON CHARTED SETTINGS. NO SIGNS OF RESP DISTRESS/SOB AT THIS TIME. AIRWAY PATENT AND SECURED. OTHER SPORTS COACH OR INSTRUCTOR DONE. PT SUCTIONED. HHN TX GIVEN. NO ADVERSE REACTIONS NOTED. ALARMS SET AND AUDIBLE. AMBUBAG AT BEDSIDE. VENT CONNECTED TO RED OUTLET. WILL CONT TO MONITOR. Addendum: 10/27/19 at 0155 by VERONICA LOONEY RT Amended: Links added.
--- NOTE | 2019-10-26 21:00 | NUR ---
TECHNICAL SALES REPRESENTATIVES NOTES REFUSED IV MEREPENEM,SAYS PATIENT ALLERGIC TO PENICILLIN
--- NOTE | 2019-10-26 22:30 | NUR ---
JAVA PROGRAMMING PROFESSOR NOTES EVENING CARE RENDERED WITH ALEXIS REYNOSO, HELPED FOR REPOSITIONING.TOLERATED WELL.
--- NOTE | 2019-10-26 23:00 | NUR ---
ACOUSTIC SENSOR OPERATOR NOTES OFFERED GT FEEDING AND IVF, STILL REFUSED,SAYS ' ILL LET YOU KNOW'
[2019-10-26] MEDS: BISACODYL SUPP (10 MG) 10 MG/SUPP.RECT SUPP.RECT RC PRN (23:31)
--- NOTE | 2019-10-26 23:31 | NUR ---
ARTS MANAGER NOTES SAYS SHE NEEDS TO POOO MORE,HE ASK DULCOLAX SUPPOSITORY,GIVEN
[2019-10-27] VITALS: BP 102/59
[2019-10-27] MEDS: LORAZEPAM 1 MG TABLET GT PRN ×2 (00:39→16:17)
--- NOTE | 2019-10-27 00:39 | NUR ---
MICROMATIC HONE OPERATOR NOTES PATIENT GRIMACING, REQUESTED FOR ATIVAN.MEDICATED WITH ATIVAN 1MG/GT ORDERED.
--- NOTE | 2019-10-27 01:00 | NUR ---
OVER HAULER HELPER NOTES GT SITE LEAKING,PLACEMENT POSITIVE ON AUSCULTATION.
--- NOTE | 2019-10-27 01:15 | NUR ---
CONCIERGE RECEPTIONIST NOTES KEEPS ON MANIPULATING GT TILL IT COMES OUT.NOTED BALLOON ALREADY DEPLETED.CHARGE NURSE MADE AWARE.PLACE TEMPORARY CATHETER F16,STILL WITH SLIGHT LEAKS,COVERED WITH DRY GAUZE.FEEDING STILL ON HOLD PER REQUEST.
[2019-10-27] MEDS: ALBUTEROL FS 2.5 MG/3 ML VIAL.NEB NEB SCH ×5 (01:47→20:09)
[2019-10-27 04:00] VITALS: BP_SYST 102; BP_SYST 93; BP_DIAS 51; BP_DIAS 59
[2019-10-27] MEDS: HYDROCODONE/APAP 10/325MG 1 EA TABLET GT PRN (04:00)
--- NOTE | 2019-10-27 04:00 | NUR ---
TIRE MECHANIC NOTES HAVING FACIAL GRIMACE,MEDICATED WITH NORCO 10/325MG, 1TAB/GT ORDERED AND PER REQUEST
[2019-10-27] MEDS: MAGNESIUM HYDROXIDE 30 ML UDC GT PRN ×3 (04:06→20:12)
--- NOTE | 2019-10-27 04:06 | NUR ---
TURN OUT WORKER NOTES NO BOWEL MOVEMENT WITH DULCOLAX SUPPOSITORY.MEDICATED WITH MILK OF MAGNESIA PER REQUEST.
[2019-10-27] MEDS: MEROPENEM 1 G in IV NS 0.9% 100 ML IV SCH (05:00)
[2019-10-27] MEDS: HEPARIN SODIUM, PORCINE 5000 UNITS/1 ML VIAL SQ SCH ×3 (06:16→21:00)
--- NOTE | 2019-10-27 06:35 | NUR ---
STABBER NOTES ON BED,NON VERBAL,OPEN EYES WHEN ADMINISTERING CARE,REPOSITIONING. REFUSING IV MERREM DUE TO ALLERGY TO PCN,BUT ITS GIVEN MULTIPLE TIMES.GT SITE STILL LEAKING,NEEDS GI CONSULT.IVF REMAINS ON HOLD PER REQUEST, ALONG WITH GT FEEDING.ABDOMEN REMAINS DISTENDED AND RIGID.SMEAR BM ONLY EARLIER PER EDGARDO ESPINOZA.VENT SETTINGS TOLERATED WELL.IN NO ACUTE DISTRESS.WILL ENDORSE TO DAY NURSE FOR JESSI.
--- NOTE | 2019-10-27 07:21 | NUR ---
CABLE CUTTER AND SWAGER OPENING NOTE PATIENT IN BED RESTING COMFORTABLY. PATIENT IN NO ACUTE DISTRESS. NO SOB NOTED. PATIENT BREATHING IS EVEN AND UNLABORED. PATIENT TOLERATING VENT SETTINGS WELL. AT THE BEDSIDE. IS REFUSING GTUBE FEEDINGS AT THIS TIME. PATIENT ON CARDIAC MONITORING READING SINUS RHYTHM HR 87. PATIENT SEEN AND EVALUATED BY DR. EDGAR. ORDERS TO DC MERREM. GI CONSULT RECOMMENDED TO MD, PER MD WILL FOLLOW UP. PATIENT BED IS LOCKED AND IN LOWEST POSITION. HOB IS ELEVATED. BED ALARM IS ON. CALL LIGHT WITHIN REACH. WILL CONTINUE TO MONITOR.
[2019-10-27 07:33] LABS: BASOPHILS # (AUTO) 0.2 /CMM (0.0-0.2); BASOPHILS % (AUTO) 1.2 % (0.0-2.0); EOSINOPHILS % (AUTO) 1.9 % (0.0-6.0); HEMATOCRIT 26 % (33-45); HEMOGLOBIN 7.9 g/dL (11.5-14.8); LYMPHOCYTES # (AUTO) 0.7 /CMM (0.8-4.8); LYMPHOCYTES % (AUTO) 5.4 % (20.0-44.0); MEAN CORPUSCULAR HGB CONC 30 g/dl (31.0-36.0); MEAN CORPUSCULAR VOLUME 80 fL (82-100); MONOCYTES # (AUTO) 0.9 /CMM (0.1-1.30); MONOCYTES % (AUTO) 6.3 % (2.0-12.0); NEUTROPHILS # (AUTO) 11.6 /CMM (1.8-8.9); NEUTROPHILS % (AUTO) 85.2 % (43.0-81.0); PLATELET COUNT (AUTO) 333 /CMM (150-450); RED BLOOD CELL COUNT(AUTO) 3.25 MIL/uL (4.0-5.2); WHITE BLOOD COUNT (AUTO) 13.6 K/uL (4.3-11.0)
[2019-10-27 07:46] LABS: CALCIUM, SERUM 7.8 mg/dL (8.5-10.1); CREATININE 0.6 mg/dL (0.6-1.3); MAGNESIUM 2.8 mg/dL (1.8-2.4); PHOSPHORUS 3.3 mg/dL (2.5-4.9); POTASSIUM 3.5 mmol/L (3.5-5.1)
[2019-10-27 08:00] VITALS: BP 98/55
--- NOTE | 2019-10-27 08:05 | NUR ---
BEHAVIOR THERAPIST NOTES PATIENT BLOOD SUGAR IS 108. PER PROTOCOL NO INSULIN COVERAGE GIVEN.
[2019-10-27] MEDS: BLOOD SUGAR DIAGNOSTIC 1 EACH STRIP IN SCH ×4 (08:06→22:00)
--- NOTE | 2019-10-27 08:09 | NUR ---
APPRENTICE COSMETOLOGIST NOTES PATIENT REFUSING BREATHING TREATMENTS FROM RT. EDUCATED RISKS VS BENEFITS, PATIENTS CONTINUED TO REFUSE.
[2019-10-27] MEDS: METOCLOPRAMIDE HCL 10 MG/10 ML UDC GT SCH ×4 (08:42→20:11)
[2019-10-27] MEDS: LEVETIRACETAM SOL (5 ML) 100 MG/ML UDC GT SCH ×2 (08:43→20:12)
[2019-10-27] MEDS: FERROUS SULFATE UDC 300 MG/5 ML UDC GT SCH (08:43)
[2019-10-27] MEDS: CHLORHEXIDINE GLUCONATE 15 ML UDC MM SCH ×2 (08:43→20:12)
[2019-10-27] MEDS: METOPROLOL TARTRATE 25 MG TABLET GT SCH ×2 (08:44→20:26)
[2019-10-27] MEDS: DIGOXIN 0.125 MG TABLET GT SCH (08:57)
[2019-10-27] MEDS: PHENOBARBITAL 30 MG TABLET GT SCH ×2 (08:57→20:12)
[2019-10-27] MEDS: PANTOPRAZOLE 40 MG/PACK PACK GT SCH (08:58)
[2019-10-27] MEDS: ASCORBIC ACID 500 MG TABLET GT SCH (08:59)
[2019-10-27] MEDS: DOCUSATE SODIUM 250 MG CAPSULE PO SCH (08:59)
[2019-10-27] MEDS: MULTIVIT W/MINERALS 1 TAB TABLET GT SCH (08:59)
[2019-10-27] MEDS: PROSOURCE / PROSTAT (PYXIS) 30 ML UDC GT SCH ×2 (09:04→16:17)
--- NOTE | 2019-10-27 09:08 | NUR ---
FOUNDER & CEO NOTES WHEN GIVING AM MEDICATIONS, I EXPLAINED ALL MEDICATIONS THAT ARE GOING TO BE GIVEN TO PATIENTS . EDUCATED IMPORTANCE, RISKS VS BENEFITS, AND SIDE EFFECTS SHOWING THE PATIENTS EACH MEDICATION. AFTER STATING THE NEED TO CRUSH THE MEDICATIONS THAT ARE IN PILL FORM FOR THE GTUBE. PATIENTS GETS AGITATED AFTER I CRUSHED THE MEDICATIONS.PATIENTS STATES " WHY WOULD YOU DO THAT, YOU SHOULD HAVE LET ME CRUSH THEM WITH YOU". PATIENTS REFUSED MEDICATIONS SUCH DIGOXIN, PHENOBARBITAL, PROTONIX, THERAGRAN, VITAMIN C, AND COLACE AFTER. EXPLAINED RISKS VS BENEFITS AGAIN. PATIENTS TOOK MEDICATION TRASH OF MEDICATIONS THAT I WAS ABLE TO GIVE. PATIENT STATES, " IF YOU DONT GIVE ME THE MEDICATION TRASH, THEN YOU CAN NOT GIVE THE OTHER MEDICATIONS." EXPLAINED THE IMPORTANCE THAT THE USED MEDICATION WRAPPERS ARE TO BE THROWN AWAY APPROPRIATELY. PATIENT GOT AGITATED AND REFUSED TO THROW THEM AND KEEP IT.
[2019-10-27] MEDS: HYDROMORPHONE HCL 2 MG TABLET GT PRN ×2 (09:58→18:21)
--- NOTE | 2019-10-27 09:58 | NUR ---
PERSONNEL QUALITY ASSURANCE AUDITOR NOTES PATIENT WITH FACIAL GRIMACING, DILAUDID 2MG GIVEN PER PATIENT REQUEST.
--- NOTE | 2019-10-27 10:29 | NUR ---
SHEAR HELPER NOTES SPOKE WITH DR. EDGAR REGARDING PATIENT REQUEST TO INCREASE DOSE MILK OF MAGNESIA TO 60 ML. PER MD ORDER NOT AT THIS TIME,BUT CAN HAVE DUCOLAX SUPPOSITORY. PATIENT REFUSES SUPPOSITORY.
[2019-10-27] MEDS: LEVOFLOXACIN 500 MG /D5W 100ML 500 MG in PREMIX 1 EA IV SCH (10:37)
--- NOTE | 2019-10-27 11:17 | NUR ---
US guided thoracentesis will be on hold until tomorrow due to patient being on heparin which was given at 0600. There needs to be a 12 hour hold prior to procedure. Also discussed with on-call radiologist Dr. Miller that procedure should be done tomorrow. Informed RN Brandan about holding heparin so that procedure can be done tomorrow at ext. [phone].
--- NOTE | 2019-10-27 11:30 | NUR ---
MAT MAKER NOTE SPOKE WITH RADIOLOGY REGARDING THORACENTESIS. PATIENTS HAS AGREED AT THIS TIME. PER RADIOLOGY, TECH CAN NOT DO THORACENTESIS TODAY DUE TO PATIENT RECEIVING HEPARIN SQ THIS MORNING. PER RADIOLOGY THEY WILL SCHEDULE FOR TOMORROW. DR. EDGAR MADE AWARE OF SITUATION. PER MD IS OKAY FOR THORACENTESIS TOMORROW.
--- NOTE | 2019-10-27 12:19 | NUR ---
WIND ENERGY SYSTEMS INSTALLER NOTES PATIENT BLOOD SUGAR IS 133. PATIENTS REFUSING INSULIN COVERAGE. PER REQUEST NOT TO HAVE PATIENT ON GTUBE FEEDINGS AT THIS TIME WELL.
[2019-10-27] MEDS: INSULIN REGULAR, HUMAN 100 UNIT/ML 3 ML VIAL SQ PRN (12:22)
--- NOTE | 2019-10-27 12:24 | NUR ---
LIVESTOCK FARMWORKER NOTES HEPARIN HELD DUE TO THORACENTESIS SCHEDULED FOR TOMORROW.
[2019-10-27] MEDS ORDERED: IV D5W 1,000 ML IV PRN (13:24)
[2019-10-27] MEDS: SOD FERRIC GLUC 125 MG in IV NS 0.9% 100 ML IV SCH ×2 (14:00→14:11)
--- NOTE | 2019-10-27 14:22 | NUR ---
PROMOTIONS FIRM ACCOUNTS MANAGER NOTE PATIENT REFUSING FERRLECIT AND ONGOING IVF. EDUCATED RISKS VS BENEFITS, PATIENT CONTINUED TO REFUSE. PER PHARMACY CHARLES OKAY TO WASTE. WASTED FERRLECIT WITH ADASRH OROZCO.
--- NOTE | 2019-10-27 15:08 | NUR ---
BATCH FREEZER NOTE PATIENT HUSBANDS REQUEST FOR MILK OF MAGNESIA 30ML GIVEN FOR PATIENT, FOR NO BOWEL MOVEMENT TODAY.
--- NOTE | 2019-10-27 15:20 | NUR ---
PER DIEM PHYSICAL THERAPIST ASSISTANT NOTE DR. LARSEN SPOKE WITH PATIENTS . PATIENTS HAD STATED TO DR. LARSEN THAT HE DOES NOT WANT TO DO THORACENTESIS HERE AT THIS HOSPITAL. INSTEAD PATIENTS WANTS TO DO THORACENTESIS AT [facility]. I WENT IN TO CONFIRM WITH PATIENT ABOUT DECISION OF THORACENTESIS. PATIENTS REFUSED TO DO THORACENTESIS TODAY AT [facility] AFTER AGREEING IN THE MORNING. DR. LARSEN TO CANCEL ORDER AT THIS TIME. NOTIFIED DR. EDGAR OF PATIENTS DECISION TO REFUSE AGAIN. PER DR. EDGAR TO HAVE [facility] COMPOUNDING ASSISTANT FOLLOW UP. NO OTHER ORDERS AT THIS TIME.
[2019-10-27] MEDS: BISACODYL SUPP (10 MG) 10 MG/SUPP.RECT SUPP.RECT RC PRN (15:32)
--- NOTE | 2019-10-27 15:34 | NUR ---
TICKET COLLECTOR OR USHER NOTES PATIENT REQUESTING BISACODYL SUPPOSITORY. PATIENT IS IRRITATED AND AGITATED WITH STAFF. 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 YOU GUYS DONT KNOW HOW TO TAKE CARE OF MY . I KNOW BETTER, DONT TELL ME HOW TO TAKE CARE OF MY ."
--- NOTE | 2019-10-27 15:50 | NUR ---
RADIO ELECTRICIAN NOTES WHEN I AM SPEAKING WITH MD THROUGH THE PHONE. PATIENTS LAUGHS AND STATES " GET OFF THE PHONE WITH YOUR GIRLFRIEND". PATIENTS HAS BEEN INSTRUCTED NOT TO PLAY AND MANEUVER WITH GTUBE GRADY BUT PATIENT REFUSES TO DO SO AND GET AGITATED AT STAFF. PATIENT STATES " I SHOULD BE A DOCTOR, I KNOW MORE THAN YOU."
[2019-10-27 16:00] VITALS: BP 113/63
--- NOTE | 2019-10-27 16:13 | NUR ---
HOUSE MANAGER NOTE PATIENT REQUESTING LORAZEPAM, STATES PATIENT IS GETTING RESTLESS AT THIS TIME. LORAZEPAM GIVEN AT THIS TIME. PATIENTS IS REFUSING 1700 MEDICATIONS AND CONTINUES TO REFUSE ONGOING IV FLUIDS AND GTUBE FEEDINGS. PATIENT GOT AGITATED WHEN I WAS EDUCATING THE IMPORTANCE OF THE MEDICATIONS AND FLUIDS. HE STATES " JUST GIVE THE LORAZEPAM ONLY".
--- NOTE | 2019-10-27 17:00 | NUR ---
STARCHER AND TENTER RANGE FEEDER NOTES WHEN GRABBING BLOOD SUGAR FROM PATIENT, PATIENTS STATED " MAYBE YOU SHOULD LEARN MORE BEFORE I SMASH MORE INFORMATION TO YOUR BRAIN." PATIENTS PROCEEDED TO LAUGH AND STATE " JUST JOKING". I RESPECTFULLY AND POLITELY INFORMED THE PATIENT THAT " I AM HERE TO HELP YOUR GET BETTER".
--- NOTE | 2019-10-27 18:04 | NUR ---
RT END OF THE SHIFT REPORTS, PT. REC. 0700 AM 69 Y OLD FEMALE REC. TRACH'D SHILEY XLT 8 ON VENT WITH NOTED SETTINGS. ALARMS ARE SET AND FUNCTIONAL, VENT PLUGGED IN TO RED OUTLET. EQUAL CHEST RISE NOTED, B/S BILATERALLY RALES AND SUX'D PRN PER REQUEST AT THE BEDSIDE. TRACH TUBE IN PLACE, SECURED, HME CHANGED, MILK TANKER DRIVER DONE, AMBU BAG HHN GIVEN INLINE AND NO ADVERSE REACTION NOTED NO RESP DISTRESS AT THIS TIME. T/O DAY AT THE BEDSIDE. AND REFUSED TO GIVE TX'S FIRST ROUND AND HE WILL CALL FOR TX'S LATER ON T/O DAY CALL FOR TX'S, GIVEN INLINE NO ADVERSE REACTION NOTED. PT. ARNALDO. WELL AND STABLE. PT. STABLE AND WILL PASS REPORT TO PM SHIFT. Addendum: 10/27/19 at 1808 by ROSAURA MARQUIS RT Amended: Links added.
--- NOTE | 2019-10-27 19:00 | NUR ---
DOCUMENT IMAGE TECHNICIAN NOTE DR. JESSICA SPOKE WITH PATIENT AND INFORMED PATIENT ABOUT ANOTHER DECISION FOR THORACENTESIS. AFTER DISCUSSION PATIENT STATED " I WANTED TO DO THORACENTESIS". PATIENT INFORMED ME AND DR. LARSEN OF REFUSAL EARLIER IN THE DAY. DR. JESSICA HAD CONTINUED DISCUSSIONS, AND PATIENT AGREED AND SIGNED FOR CONSENT FOR THORACENTESIS TOMORROW AT THIS TIME.
--- NOTE | 2019-10-27 19:30 | NUR ---
RN OPENING NOTES Received patient A/O x1, non-verbal. On mech vent with settings noted, saturating well, no respiratory distress noted at this time. On tele monitor with controlled A-Fib noted. With gastrostomy with FC temporarily while waiting for GI MD. Generalize edema noted. remained at bedside. Kept on bed clean, dry and comfortable. Call light within easy reach. On fall and aspiration precautions. Will continue to monitor accordingly.
--- NOTE | 2019-10-27 19:35 | NUR ---
BLEACH ANALYST CLOSING NOTE PATIENT IN BED RESTING COMFORTABLY. PATIENT TOLERATING VENT SETTINGS WELL. AT THE BEDSIDE. PATIENT REFUSED TO LET ME HELP CLEAN GTUBE THROUGHOUT SHIFT. ONLY UNTIL END OF SHIFT PATIENT ALLOWED ME TO CLEAN GTUBE. EDUCATED IMPORTANCE TO ALLOW APPROPRIATE CLEANING OF GTUBE SITE, PATIENT REFUSED MOST OF THE SHIFT. PATIENT CONTINUES TO REFUSE ONGOING IVF AND GTUBE FEEDINGS. IS MADE AWARE OF GI CONSULT. PER MD ALREADY CONTACTED DR. SARAVIA FOR FOLLOW UP. PATIENT TURNED AND REPOSITIONED MUCH PATIENT WOULD ALLOW. PATIENT AT TIMES RAISES VOICE AT STAFF THROUGHOUT SHIFT. PATIENT HOB IS ELEVATED. PATIENT ON TELE MONITORING READING SINUS RHYTHM HR 93. PATIENT BREATHING IS EVEN AND UNLABORED. PATIENT IN NO ACUTE DISTRESS. NO SOB NOTED. PATIENT EXTREMITIES OFFLOADED ON PILLOWS. PATIENT BED IS LOCKED AND IN LOWEST POSITION. CALL LIGHT WITHIN REACH. WILL ENDORSE CARE TO PM SHIFT FOR JESSI.
[2019-10-27] MEDS: GLUCERNA 1.2 1,000 ML BOTTLE GT PRN (19:55)
[2019-10-27 20:00] VITALS: BP_SYST 91; BP_SYST 93; BP_DIAS 51; BP_DIAS 54
--- NOTE | 2019-10-27 20:09 | NUR ---
RT NOTES PT RECEIVED TRACHED ON [facility] VENT ON CHARTED SETTINGS. NO SIGNS OF RESP DISTRESS/SOB AT THIS TIME. AIRWAY PATENT AND SECURED. HYDRODYNAMICIST DONE. PT SUCTIONED. HHN TX GIVEN. NO ADVERSE REACTIONS NOTED. ALARMS SET AND AUDIBLE. AMBUBAG AT BEDSIDE. VENT CONNECTED TO RED OUTLET. WILL CONT TO MONITOR. Addendum: 10/27/19 at 2024 by VERONICA LOONEY RT Amended: Links added.
--- NOTE | 2019-10-27 21:06 | NUR ---
RN NOTES Held Heparin dose at this time, pt is for Thoracentesis tomorrow. Dr Kapoor discussed the procedure and consent with the per AM RN report.
[2019-10-28 00:01] VITALS: BP 101/57
[2019-10-28] MEDS: LORAZEPAM 1 MG TABLET GT PRN (00:01)
--- NOTE | 2019-10-28 00:15 | NUR ---
RN NOTES PEG tube placement confirmed with KUB with grastrografin. Resulted in place, relayed to ISATU Grimes, with order okay to resumed feeding and meds using the PEG. Resumed feeding as ordered. Will continue to monitor accordingly.
[2019-10-28] MEDS: ALBUTEROL FS 2.5 MG/3 ML VIAL.NEB NEB SCH ×4 (01:28→20:23)
[2019-10-28 04:00] VITALS: BP 105/61
[2019-10-28] MEDS: HEPARIN SODIUM, PORCINE 5000 UNITS/1 ML VIAL SQ SCH ×3 (05:00→20:38)
[2019-10-28] MEDS: INSULIN REGULAR, HUMAN 100 UNIT/ML 3 ML VIAL SQ PRN ×4 (05:56→23:43)
[2019-10-28] MEDS: BLOOD SUGAR DIAGNOSTIC 1 EACH STRIP IN SCH ×4 (05:56→23:44)
[2019-10-28] MEDS: HYDROCODONE/APAP 10/325MG 1 EA TABLET GT PRN (06:38)
[2019-10-28 06:52] LABS: BASOPHILS % (AUTO) 0.3 % (0.0-2.0); EOSINOPHILS % (AUTO) 0.8 % (0.0-6.0); HEMATOCRIT 29 % (33-45); HEMOGLOBIN 8.5 g/dL (11.5-14.8); LYMPHOCYTES # (AUTO) 0.5 /CMM (0.8-4.8); LYMPHOCYTES % (AUTO) 3.7 % (20.0-44.0); MEAN CORPUSCULAR HGB CONC 29 g/dl (31.0-36.0); MEAN CORPUSCULAR VOLUME 81 fL (82-100); MONOCYTES # (AUTO) 0.8 /CMM (0.1-1.30); MONOCYTES % (AUTO) 5.7 % (2.0-12.0); NEUTROPHILS # (AUTO) 12.9 /CMM (1.8-8.9); NEUTROPHILS % (AUTO) 89.5 % (43.0-81.0); PLATELET COUNT (AUTO) 371 /CMM (150-450); RED BLOOD CELL COUNT(AUTO) 3.57 MIL/uL (4.0-5.2); WHITE BLOOD COUNT (AUTO) 14.4 K/uL (4.3-11.0)
[2019-10-28 06:54] LABS: CREATININE 0.6 mg/dL (0.6-1.3); MAGNESIUM 2.9 mg/dL (1.8-2.4); PHOSPHORUS 2.9 mg/dL (2.5-4.9); POTASSIUM 3.6 mmol/L (3.5-5.1)
--- NOTE | 2019-10-28 06:55 | NUR ---
RN CLOSING NOTES Patient on bed asleep, easily awaken. On vent with setting noted, saturating well, no respiratory distress noted. Suctioned by RT PRN. On tele monitor with controlled A-Fib noted, patient denies any discomfort. Due meds given as ordered. On GTF as ordered. All nursing needs attended. No new complaints, afebrile the whole shift. Kept on bed clean, dry and comfortable. Call light within easy reach. Endorsed.
[2019-10-28 08:00] VITALS: BP 95/51
--- NOTE | 2019-10-28 08:10 | NUR ---
BARTENDER NOTES GTF OFF AT THIS TIME. YOSEF MADE AWARE THAT GTF MAY BE RESUMED BUT INSISTS TO CONTINUE GTF ON HOLD. RISKS AND BENEFITS EXPLAINED BUT TO NO AVAIL, STRONGLY REFUSED AND INSISTED GTF TO BE ON HOLD. MD AWARE, NO NEW ORDERS AT THIS TIME. WILL CONTINUE TO MONITOR
--- NOTE | 2019-10-28 08:29 | NUR ---
CONFERENCE COORDINATOR NOTES PATIENT RECEIVED RESTING INSIDE ROOM, NON-VERBAL, TRACH IN PLACE. TOLERATING VENT SETTINGS. NO ACUTE DISTRSS. GT IN PLACE, GTF ON HOLD PER 'S REQUEST. ANTICIPATING THORACENTESIS, VERIFIED WITH US TECH THAT GTF MAY RESUME. EXPLAINED TO BUT CONTINUE TO INSIST THAT GTF TO BE ON HOLD. OPTICAL FABRICATOR IN PLACE, ST 101. WILL CONTINUE TO MONITOR. BED LOCKED AND IN LOW POSITION. MAINTAINED ASPIRATION PRECAUTIONS. SEIZURE PRECAUTIONS IN PLACE. CALL LIGHT WITHIN EASY REACH
[2019-10-28] MEDS: LEVETIRACETAM SOL (5 ML) 100 MG/ML UDC GT SCH ×2 (09:00→20:35)
[2019-10-28] MEDS: PROSOURCE / PROSTAT (PYXIS) 30 ML UDC GT SCH ×2 (09:00→16:35)
[2019-10-28] MEDS: METOPROLOL TARTRATE 25 MG TABLET GT SCH ×2 (09:00→20:35)
--- NOTE | 2019-10-28 09:55 | NUR ---
WORD PROCESSING SUPERVISOR NOTES S/P THORACENTESIS. FLUIDS COLLECTED AT BEDSIDE, WILL DELIVER TO LAB. ORDER PLACED FOR STAT CXR. NO ACUTE DISTRESS NOTED AT THIS TIME. WILL CONTINUE TO MONITOR
--- NOTE | 2019-10-28 10:24 | NUR ---
RESERVOIR CARETAKER NOTES SEEN CXR RESULTS. PLACED CALL TO ULTRASOUND AND TECH AWARE, VERBALIZED WILL FOLLOW-UP WITH DR WELLS FOR ORDERS. WILL CONTINUE TO MONITOR
--- NOTE | 2019-10-28 10:25 | NUR ---
CUSTOMER CARE COORDINATOR NOTES SPOKE TO DR WELLS REGARDING CXR RESULTS, NO NEW ORDERS AT THIS TIME. DR WELLS ALSO VERBALIZED THAT CXR RESULT WAS DISCUSSED WITH DR JESSICA. OK TO RESUME GTF AND MEDICATIONS. YOSEF AT BEDSIDE MADE AWARE AND VERBALIZED UNDERSTANDING BUT STATED TO CONTINUE HOLD GTF. RISKS AND BENEFITS EXPLAINED BUT TO NO AVAIL. MD AWARE. WILL CONTINUE TO MONITOR
--- NOTE | 2019-10-28 10:45 | NUR ---
POLICY WRITER SALES NOTES PATIENT'S YOSEF AT BEDSIDE, REFUSING KEPPRA AND PROSTAT. RISKS AND BENEFITS EXPLAINED BUT TO NO AVAIL. OFFERED X 3, YOSEF STRONGLY REFUSED. SEIZURE PRECAUTIONS IN PLACE. WILL CONTINUE TO MONITOR
[2019-10-28] MEDS: DIGOXIN 0.125 MG TABLET GT SCH (11:06)
[2019-10-28] MEDS: MULTIVIT W/MINERALS 1 TAB TABLET GT SCH (11:06)
[2019-10-28] MEDS: PANTOPRAZOLE 40 MG/PACK PACK GT SCH (11:06)
[2019-10-28] MEDS: PHENOBARBITAL 30 MG TABLET GT SCH ×2 (11:07→20:35)
[2019-10-28] MEDS: HYDROMORPHONE HCL 2 MG TABLET GT PRN ×2 (11:07→22:48)
[2019-10-28] MEDS: DOCUSATE SODIUM 250 MG CAPSULE PO SCH (11:07)
[2019-10-28] MEDS: FERROUS SULFATE UDC 300 MG/5 ML UDC GT SCH (11:07)
[2019-10-28] MEDS: CHLORHEXIDINE GLUCONATE 15 ML UDC MM SCH ×2 (11:07→20:35)
[2019-10-28] MEDS: ASCORBIC ACID 500 MG TABLET GT SCH (11:07)
[2019-10-28] MEDS: METOCLOPRAMIDE HCL 10 MG/10 ML UDC GT SCH ×4 (11:18→20:35)
--- NOTE | 2019-10-28 11:37 | NUR ---
AUTO BENCH MECHANIC NOTES FSBS 138. PATIENT'S REFUSING TO GIVE INSULIN TO PATIENT. RISKS AND BENEFITS EXPLAINED BUT TO NO AVAIL, PATIENT'S YOSEF STRONGLY REFUSED. WILL CONTINUE TO MONITOR
[2019-10-28] MEDS: LEVOFLOXACIN 500 MG /D5W 100ML 500 MG in PREMIX 1 EA IV SCH (11:44)
--- NOTE | 2019-10-28 12:15 | NUR ---
COMMERCIAL FRONT LOAD OPERATOR NOTES AGREED TO RESUME GTF. GTF STARTED ORDERED. WILL CONTINUE TO MONITOR
--- NOTE | 2019-10-28 12:43 | NUR ---
PROCESS COORDINATOR NOTES PATIENT'S YOSEF REFUSED TO HAVE PATIENT RECEIVE REGLAN AND HEPARIN. RISKS AND BENEFITS EXPLAINED BUT TO NO AVAIL, OFFERED X 3, STRONGLY REFUSED. WILL CONTINUE TO MONITOR
[2019-10-28] MEDS: SOD FERRIC GLUC 125 MG in IV NS 0.9% 100 ML IV SCH (13:11)
--- NOTE | 2019-10-28 13:12 | NUR ---
SECTION PLOTTER OPERATOR NOTES PATIENT'S YOSEF REFUSED TO HAVE PATIENT RECEIVE FERRLECIT. RISKS AND BENEFITS EXPLAINED BUT TO NO AVAIL, OFFERED X 3, STRONGLY REFUSED. WILL CONTINUE TO MONITOR
[2019-10-28 16:00] VITALS: BP 103/56
--- NOTE | 2019-10-28 16:36 | NUR ---
CERTIFIED TECHNICIAN NOTES PATIENT'S YOSEF REFUSED TO HAVE PATIENT RECEIVE REGLAN AND PROSTAT. RISKS AND BENEFITS EXPLAINED BUT TO NO AVAIL, OFFERED X 3, STRONGLY REFUSED. WILL CONTINUE TO MONITOR
--- NOTE | 2019-10-28 18:00 | NUR ---
FIELD SUPPORT REPRESENTATIVE NOTES FSBS 137. PATIENT'S REFUSED TO GIVE INSULIN TO PATIENT. RISKS AND BENEFITS EXPLAINED BUT TO NO AVAIL, PATIENT'S YOSEF STRONGLY REFUSED. WILL CONTINUE TO MONITOR THE PATIENT.
--- NOTE | 2019-10-28 18:49 | NUR ---
FARM MANAGEMENT AGENT NOTES PATIENT RESTING INSIDE ROOM. NON-VERBAL. TRACH IN PLACE, TOLERATING VENT SETTINGS. NO ACUTE DISTRESS. NO FACIAL GRIMACE NOTED. GTF ONGOING. MAINTAINED ASPIRATION PRECAUTIONS. HOT DOG VENDOR IN PLACE, AFIB 90'S/ PATIENT KEPT CLEAN, DRY AND COMFORTABLE. WILL ENDORSE TO INCOMING SHIFT FOR JESSI. BED LOCKED AND IN LOW POSITION. SIDE RAILS UP X 3. CALL LIGHT WITHIN EASY REACH.
--- NOTE | 2019-10-28 19:20 | NUR ---
RN OPENING NOTES RECEIVED PATIENT FROM PAM ESPINAL. PATIENT RESTING INSIDE ROOM, NON-VERBAL, TRACH IN PLACE. TOLERATING VENT SETTINGS. NO ACUTE DISTRESS. GT IN PLACE. TELE READING CURRENTLY AFIB 90'S. NO SIGNS OF FACIAL GRIMACING INDICATING PAIN OR DISCOMFORT AT THIS TIME. IV SITE IN PLACE NO IVF CURRENTLY RUNNING. INTACT, PATENT, NO SIGNS OF INFECTION/INFILTRATION. ASPIRATION PRECAUTIONS MAINTAINED. SEIZURE PRECAUTIONS IMPLEMENTED. SAFETY PRECAUTIONS IMPLEMENTED; CALL LIGHT WITHIN REACH, BED LOCKED, BILATERAL UPPER SIDE RAILS UP. BED ALARM ON. WILL CONTINUE TO MONITOR.
[2019-10-28 20:00] VITALS: BP 110/60
[2019-10-28] MEDS: IV D5W 1,000 ML IV SCH (21:24)
[2019-10-28] MEDS: GLUCERNA 1.2 1,000 ML BOTTLE GT PRN (21:38)
--- NOTE | 2019-10-28 22:40 | NUR ---
RN NOTES PATIENT'S , YOSEF, ARRIVED ON THE UNIT. PATIENT REFUSES GTF FOR NOW. GTF CURRENTLY PAUSED. PATIENT UNDERSTANDS THE RISKS AND BENEFITS.
[2019-10-28 22:45] VITALS: BP 122/66
[2019-10-29] VITALS (7 sets, daily range): BP systolic 92–123; BP diastolic 48–66
[2019-10-29] MEDS: ALBUTEROL FS 2.5 MG/3 ML VIAL.NEB NEB SCH ×4 (00:51→20:05)
[2019-10-29] MEDS: LORAZEPAM 1 MG TABLET GT PRN ×2 (04:32→11:46)
[2019-10-29] MEDS: HEPARIN SODIUM, PORCINE 5000 UNITS/1 ML VIAL SQ SCH ×3 (04:35→21:00)
--- NOTE | 2019-10-29 04:36 | NUR ---
RN NOTES PATIENT REFUSED HEPARIN. EXPLAINED THE RISKS AND BENEFITS X3 BUT STILL REFUSES MED FOR HER.
[2019-10-29] MEDS: INSULIN REGULAR, HUMAN 100 UNIT/ML 3 ML VIAL SQ PRN ×3 (05:47→18:03)
--- NOTE | 2019-10-29 06:00 | NUR ---
RN NOTES PATIENT REFUSED HEPARIN FOR THE PATIENT. INFORMED AND PATIENT THE RISKS AND BENEFITS. PATIENT INSISTS ON REFUSING. WILL CONTINUE TO MONITOR.
[2019-10-29] MEDS: BLOOD SUGAR DIAGNOSTIC 1 EACH STRIP IN SCH ×3 (06:05→18:02)
--- NOTE | 2019-10-29 06:30 | NUR ---
RN CLOSING NOTES PATIENT IS CURRENTLY RESTING INSIDE ROOM, NON-VERBAL, TRACH IN PLACE. TOLERATING VENT SETTINGS SATURATING WELL. NO ACUTE DISTRESS. SUCTIONED BY RT PRN. TELE READING CURRENTLY A-FIB 101 CONTROLLED. NO SIGNS OF FACIAL GRIMACING INDICATING PAIN OR DISCOMFORT AT THIS TIME. IV SITE IN PLACE SHARLENE MIDLINE, INTACT. PATENT PATIENT KEPT CLEAN, DRY AND COMFORTABLE. ALL NEEDS MET ON SHIFT. PATIENT TURNED Q2H. ALL DUE MEDS GIVEN ORDERED WITH NO ADVERSE EFFECTS. ON GTF ORDERED, WAS PAUSED FOR AWHILE, PER PATIENT'S REQUEST. SAFETY PRECAUTIONS IMPLEMENTED; CALL LIGHT WITHIN REACH, BED LOW, BED LOCKED, BILATERAL UPPER SIDE RAILS UP. BED ALARM ON. WILL ENDORSE TO DAY SHIFT NURSE FOR CONTINUITY OF CARE.
[2019-10-29] MEDS: HYDROMORPHONE HCL 2 MG TABLET GT PRN (06:38)
--- NOTE | 2019-10-29 07:49 | NUR ---
FINANCIAL BROKERS NOTES PATIENT RECEIVED IN BED RESTING. PATIENT IS NON-VERBAL. PATIENT TOLERATING VENT SETTINGS, WITH NO RESPIRATORY DISTRESS PRESENT. PATIENT ON MONITOR WITH A-FIB CONTROLLED, 90'S. SKIN IS DRY AND WARM. PATIENT NGT TURNED OFF, PER YOSEF REQUEST, SITE IS CLEAN AND DRY. BED IN THE LOWEST POSITION, BED LOCKED, BILATERAL SIDE RAILS UP, AND CALL LIGHT WITHIN EASY REACH. SEIZURE PRECAUTION IN PLACE, WITH PADDING ON THE SIDE RAILS. PROVIDED COMFORT MEASURES FOR THE PATIENT AND WILL CONTINUE TO MONITOR.
[2019-10-29 07:51] LABS: BASOPHILS % (AUTO) 0.3 % (0.0-2.0); EOSINOPHILS % (AUTO) 2.1 % (0.0-6.0); HEMATOCRIT 29 % (33-45); HEMOGLOBIN 8.3 g/dL (11.5-14.8); LYMPHOCYTES # (AUTO) 0.8 /CMM (0.8-4.8); LYMPHOCYTES % (AUTO) 5.7 % (20.0-44.0); MEAN CORPUSCULAR HGB CONC 29 g/dl (31.0-36.0); MEAN CORPUSCULAR VOLUME 81 fL (82-100); MONOCYTES # (AUTO) 0.9 /CMM (0.1-1.30); NEUTROPHILS # (AUTO) 11.2 /CMM (1.8-8.9); NEUTROPHILS % (AUTO) 84.9 % (43.0-81.0); PLATELET COUNT (AUTO) 362 /CMM (150-450); RED BLOOD CELL COUNT(AUTO) 3.53 MIL/uL (4.0-5.2); WHITE BLOOD COUNT (AUTO) 13.2 K/uL (4.3-11.0)
[2019-10-29 08:01] LABS: CALCIUM, SERUM 7.5 mg/dL (8.5-10.1); CREATININE 0.5 mg/dL (0.6-1.3); MAGNESIUM 2.8 mg/dL (1.8-2.4); PHOSPHORUS 3.3 mg/dL (2.5-4.9); POTASSIUM 3.4 mmol/L (3.5-5.1)
[2019-10-29] MEDS: LEVETIRACETAM SOL (5 ML) 100 MG/ML UDC GT SCH ×2 (09:00→22:12)
[2019-10-29] MEDS: PROSOURCE / PROSTAT (PYXIS) 30 ML UDC GT SCH ×2 (09:00→16:55)
[2019-10-29] MEDS: METOPROLOL TARTRATE 25 MG TABLET GT SCH ×2 (09:00→21:00)
[2019-10-29] MEDS: CHLORHEXIDINE GLUCONATE 15 ML UDC MM SCH ×2 (09:26→22:05)
[2019-10-29] MEDS: ASCORBIC ACID 500 MG TABLET GT SCH (09:28)
[2019-10-29] MEDS: FERROUS SULFATE UDC 300 MG/5 ML UDC PO SCH (09:28)
[2019-10-29] MEDS: PHENOBARBITAL 30 MG TABLET GT SCH ×2 (09:28→22:11)
[2019-10-29] MEDS: DIGOXIN 0.125 MG TABLET GT SCH (09:28)
[2019-10-29] MEDS: PANTOPRAZOLE 40 MG/PACK PACK GT SCH (09:28)
[2019-10-29] MEDS: DOCUSATE SODIUM 250 MG CAPSULE PO SCH (09:28)
[2019-10-29] MEDS: MULTIVIT W/MINERALS 1 TAB TABLET GT SCH (09:29)
--- NOTE | 2019-10-29 09:30 | NUR ---
PLASTICATOR NOTES PATIENT'S YOSEF AT BEDSIDE, REFUSING KEPPRA AND PROSTAT. RISKS AND BENEFITS EXPLAINED BUT TO NO AVAIL. OFFERED X 3, YOSEF STRONGLY REFUSED. SEIZURE PRECAUTIONS IN PLACE. WILL CONTINUE TO MONITOR
[2019-10-29] MEDS: METOCLOPRAMIDE HCL 10 MG/10 ML UDC GT SCH ×5 (09:32→22:14)
--- NOTE | 2019-10-29 09:57 | NUR ---
VENDING MACHINE COIN COLLECTOR NOTES HELD METOPROLOL DUE TO BP 97/64. AT BEDSIDE KEPT ON INSISTING MEDICATION TO BE GIVEN. RISKS AND BENEFITS EXPLAINED BUT TO NO AVAIL. YOSEF ACTS IF HE DOES NOT HEAR EXPLANATION AND WOULD CONTINUE TO INSIST MEDICATION TO BE GIVEN. OFFERED TO RECHECK BLOOD PATIENT AND AGREED, WITH RESULT OF 94/63, AGREED TO HOLD MEDICATION. WILL CONTINUE TO MONITOR
[2019-10-29] MEDS: CHLORHEXIDINE GLUCONATE 4% 118 ML BOTTLE TP SCH (10:17)
--- NOTE | 2019-10-29 10:41 | NUR ---
STONE POLISHER HAND NOTES PATIENT SEEN AND EXAMINED BY DR COTO. WITH NEW ORDER FOR SURGERY CONSULT 2 PNEUMOTHORAX, PLACED CALL TO OFFICE OF DR RODRIGUEZ ([phone]) AND SPOKE WITH KING LEFT MESSAGE FOR CONSULT. DR COTO AND KOSTAS SOLORZANO MATTRESS INSPECTOR BOTH MADE AWARE. WILL CONTINUE TO MONITOR
[2019-10-29] MEDS ORDERED: POTASSIUM CHLORIDE 20 MEQ POWDER PACKET GT SCH (11:00)
[2019-10-29] MEDS: LEVOFLOXACIN 500 MG /D5W 100ML 500 MG in PREMIX 1 EA IV SCH (11:12)
--- NOTE | 2019-10-29 12:26 | NUR ---
DRYING ROOM OPERATOR NOTES PATIENT'S YOSEF REFUSED TO HAVE PATIENT RECEIVE REGLAN AND HEPARIN. RISKS AND BENEFITS EXPLAINED BUT TO NO AVAIL, OFFERED X 3, STRONGLY REFUSED. WILL CONTINUE TO MONITOR
[2019-10-29] MEDS ORDERED: SOD FERRIC GLUC 125 MG in IV NS 0.9% 100 ML IV SCH (14:00)
--- NOTE | 2019-10-29 16:38 | NUR ---
PRIVACY COMPLIANCE MANAGER NOTES BP 123/66. AT BEDSIDE INSISTING METOPROLOL TO BE GIVEN AT THIS TIME. EXPLAINED TO THAT METOPROLOL IS NOT SCHEDULED AT THIS TIME AND NEXT SCHEDULE IS AT 2100. YOSEF VERY FURIOUS STATING THAT LICENSED STAFF THINKS HE'S BETTER THAN THE DOCTOR. EXPLAINED TO THE THAT THE MEDICATION AND THE SCHEDULE ARE ALL ORDERED BY THE DOCTOR. ATTEMPTED TO EXPLAIN MEDICATION ACTION TO BUT DOES NOT LISTEN, ACTS IF HE DOESNT HEAR ANYTHING. YOSEF WENT STORMING TO NURSES STATION AND SPOKE WITH CHARGE NURSE. CHARGE NURSE MADE AWARE OF SITUATION, ALSO EXPLAINED MEDICATION SCHEDULE TO AND HE AGREED. WILL CONTINUE TO MONITOR
[2019-10-29] MEDS: IV D5W 1,000 ML IV SCH (16:55)
--- NOTE | 2019-10-29 16:56 | NUR ---
LICENSED PHARMACIST NOTES PATIENT'S YOSEF AT BEDSIDE, CONTINUE TO REFUSE IVF. ALSO REFUSED PATIENT TO HAVE PROSTAT. RISKS AND BENEFITS EXPLAINED BUT TO NO AVAIL. CHARGE NURSE AWARE. MD AWARE. WILL CONTINUE TO MONITOR
--- NOTE | 2019-10-29 16:57 | NUR ---
HERB DIGGER NOTES DURING MEDICATION ADMINISTRATION, OFFERED TO GIVE REGLAN TO PATIENT AND AGREED. THEN INSISTED AGAIN ON GIVING PATIENT METOPROLOL. EXPLAINED MEDICATION SCHEDULE AGAIN TO BUT CONTINUES TO ACT IF HE DOESNT HEAR EXPLANATION. ATTEMPTED TO EXPLAIN MEDICATION SCHEDULE AGAIN TO VERIFY THAT ACTUALLY HEARS NURSING STAFF BUT STARTED ACCUSING LICENSED STAFF YELLING AT HIM. EXPLAINED TO THAT ITS BECAUSE HE DOESNT RESPOND WHEN ASKED TO BUT HE STILL INSISTS THAT LICENSED STAFF IS YELLING AT HIM. THEN AGAIN WENT TO NURSING STATION AND SPOKE WITH CHARGE NURSE. CHARGE NURSE EXPLAINED THAT WE CANNOT GIVE METOPROLOL AT THIS TIME AND EARLIEST TIME WILL BE GIVEN NEXT DOSE IS AT 1999. VERBALIZED UNDERSTANDING AND WENT BACK TO THE ROOM. WENT BACK TO OFFER REGLAN BUT YELLED, "DONT TOUCH MY ! YOU DONT GO NEAR MY ! HAVE ANOTHER NURSE GIVE THE MEDICATION!". ASKED ANOTHER LICENSED STAFF TO GIVE MEDICATION BUT REFUSED TO HAVE REGLAN GIVEN TO PATIENT THIS TIME. RISKS AND BENEFITS EXPLAINED BUT TO NO AVAIL. ADDED, "ITS TOO MUCH LIQUID. DONT GIVE NOTHING RIGHT NOW!". CHARGE NURSE AWARE. WILL CONTINUE TO MONITOR
--- NOTE | 2019-10-29 18:03 | NUR ---
CORRECTIONAL MAINTENANCE TECHNICIAN NOTES FSBS 165. YOSEF REFUSED TO HAVE INSULIN GIVEN. VERBALIZED HE DOESNT WANT PATIENT TO BE TOUCHED NOR BE GIVEN WITH ANYTHING AT THIS TIME. RISKS AND BENEFITS EXPLAINED BUT CONTINUES TO INSIST PATIENT NOT TO BE TOUCHED. WILL CONTINUE TO MONITOR
--- NOTE | 2019-10-29 18:43 | NUR ---
LABORER PIPELINE NOTES PATIENT RESTING INSIDE ROOM. NO ACUTE DISTRESS. CONTINUE TO TOLERATE VENT SETTINGS. NO ACUTE DISTRESS. CLINICAL REHAB SPECIALIST IN PLACE, AFIB 95. PATIENT KEPT CLEAN, DRY AND COMFORTABLE. MAINTAINED SEIZURE PRECAUTIONS, MAINTAINED ASPIRATION PRECAUTIONS. YOSEF AT BEDSIDE CONTINUE TO REFUSE IVF, MD AWARE. ONGOING GTF AT THIS TIME. WILL ENDORSE TO INCOMING SHIFT FOR JESSI. BED LOCKED AND IN LOW POSITION. SIDE RAILS UP X 3. CALL LIGHT WITHIN EASY REACH.
--- NOTE | 2019-10-29 19:35 | NUR ---
TELE/RN NOTES RECEIVED PT. LYING IN BED. PT. IS NON-VERBAL, OPENS EYES, VENT/TRACH DEPENDENT. BREATHING EVEN AND UNLABORED ON VENT SETTINGS. PT. WITH EXTERNAL WET ROOM WORKER PRESENT AND INTACT CURRENT RHYTHM = 97. PT. WITH RIGHT UPPER ARM MIDLINE PRESENT, PATENT AND INTACT. PT. YOSEF PRESENT AT BEDSIDE AND REFUSING PT. TO HAVE IV FLUIDS AT THIS TIME. PT. WITH G-TUBE PRESENT, PATENT AND INTACT. NO RESIDUAL NOTED AT THIS TIME. PT. YOSEF REFUSING PT. HAVE TUBE FEEDING AT THIS TIME, STATING PT. HAS RECEIVED ENOUGH FLUIDS AND ENOUGH FEEDINGS. EDUCATED PT. ABOUT RISK VS BENEFIT. HE IS STATING "NO SHE DOESN'T NEED IT. I DONT WANT IT". SAFETY, ASPIRATION AND SEIZURE PRECAUTIONS IMPLEMENTED AND IN PLACE. BED LOCKED AND IN LOWEST POSITION, SIDE RAILS UP X3, BED ALARM ON, CALL LIGHT WITHIN REACH, WILL CONTINUE TO MONITOR.
--- NOTE | 2019-10-29 20:58 | NUR ---
PT RCVD TRACH'D ON MECHANICAL VENT WITH CHARTED SETTINGS. PT ARNALDO TX WELL. SX DONE. PT TRACH IS PATENT AND SECURE. VENT ALARMS APPEAR TO BE FUNCTIONING PROPERLY. VENT PLUGGED INTO RED OUTLET. AMBU BAG AT BEDSIDE. NO SOB NOTED. Addendum: 10/29/19 at 2058 by ARISTEO SALGUERO RT Amended: Links added.
--- NOTE | 2019-10-29 21:00 | NUR ---
TELE/RN NOTES PT. YOSEF REFUSED PT. SCHEDULED HEPARIN MEDICATION. EDUCATED HIM ON RISK VS. BENEFIT. HE APPEARS TO NOT BE LISTENING AND CONTINUES TO TELL ME "NO I DONT WANT IT. DO NOT GIVE IT". WILL CONTINUE TO MONITOR.
--- NOTE | 2019-10-29 22:11 | NUR ---
TELE/RN NOTES PT. YOSEF REFUSING PT. RECEIVE KEPPRA MEDICATION STATING "SHE DOESN'T NEED IT SHE HAS THE PHENOBARBITAL, SHE HASN'T BEEN HAVING SEIZURES". EDUCATED PT. ON RISK VS BENEFIT. YOSEF CONTINUES TO REFUSE. NOTIFIED CHARGE NURSE LUKAS. CHARGE NURSE LUKAS SPOKE WITH AND HE ALLOWED PT. TO RECEIVE THE KEPPRA MEDICATION ORDERED. YOSEF SAID HE WILL SPEAK TO THE DOCTOR IN THE MORNING ABOUT ALL THE MEDICATIONS HE DOESN'T WANT HER HAVING. WILL CONTINUE TO MONITOR.
--- NOTE | 2019-10-29 22:30 | NUR ---
TELE/RN NOTES PT. YOSEF REFUSING THAT PT. BE TURNED AND REPOSITIONED AND CLEANED. HE STATED HE WILL DO IT HIMSELF AND DOES NOT WANT ANY HELP. EDUCATED ON NEED FOR ASSISTANCE DUE TO PT. BEING ON VENT. HE CONTINUES TO INSIST HE CAN DO IT ON HIS OWN. WILL CONTINUE TO MONITOR.
[2019-10-30] VITALS: BP 94/49
--- NOTE | 2019-10-30 | NUR ---
TELE/RN NOTES PT. INITIAL BP NOTED TO BE 79/45. RECHECKED PT. BP RESULTED AT 93/46. EDUCATED PT. ON IMPORTANCE OF ADMINISTERING TO PT. IV FLUIDS ORDERED. PT. FINALLY AGREED TO ADMINISTER IV FLUIDS TO PATIENT. WILL CONTINUE TO MONITOR.
[2019-10-30] MEDS: GLUCERNA 1.2 1,000 ML BOTTLE GT PRN (00:16)
[2019-10-30] MEDS: BLOOD SUGAR DIAGNOSTIC 1 EACH STRIP IN SCH ×5 (00:16→23:40)
[2019-10-30] MEDS: INSULIN REGULAR, HUMAN 100 UNIT/ML 3 ML VIAL SQ PRN ×4 (00:17→23:40)
[2019-10-30] MEDS: IV D5W 1,000 ML IV SCH (00:28)
[2019-10-30] MEDS: ALBUTEROL FS 2.5 MG/3 ML VIAL.NEB NEB SCH ×4 (01:04→19:54)
--- NOTE | 2019-10-30 04:40 | NUR ---
TELE/RN NOTES FLUSHED PT. G-TUBE AND NOTED SLIGHT LEAKING AT G-TUBE SITE. PT. YOESF NOTED TO BE TOUCHING G-TUBE DRESSINGS AND MOVING AROUND THE G-TUBE CONSISTENTLY AND WITHOUT GLOVES. EDUCATED HIM ON WEARING GLOVES WHEN HANDLING G-TUBE AND NOT MOVING AROUND THE G-TUBE. HE SAID "I CAN TOUCH MY ANYTIME I WANT. I KNOW WHAT I CAN DO." ALSO NOTED THAT CONTINUES TO TURN OFF PT. TUBE FEEDING STATING "SHE DOESN'T NEED ANY MORE. SHE HAS HAD ENOUGH OF THE FEEDING". EDUCATED PT. ON IMPORTANCE OF TUBE FEEDING. PT. CONTINUES TO REFUSE IT. CHARGE NURSE INFORMED. WILL ORDER SOCIAL SERVICE CONSULT DUE TO PT. INTERFERING WITH CARE, REFUSING MEDICATION, TUBE FEEDINGS AND IV FLUIDS. WILL CONTINUE TO MONITOR.
[2019-10-30] MEDS: HEPARIN SODIUM, PORCINE 5000 UNITS/1 ML VIAL SQ SCH ×3 (05:00→21:00)
[2019-10-30] MEDS: ALBUTEROL FS 2.5 MG/3 ML VIAL.NEB NEB PRN (05:27)
--- NOTE | 2019-10-30 06:20 | NUR ---
TELE/RN NOTES PT. YOSEF REFUSED PT. SCHEDULED 0600 HEPARIN MEDICATION AND INSULIN COVERAGE PT. BLOOD SUGAR NOTED TO BE 153 MG/DL. EDUCATED HIM ON RISK VS. BENEFIT. HE APPEARS TO NOT BE LISTENING AND CONTINUES TO TELL ME "NO I DON'T WANT IT. DO NOT GIVE IT" WILL INFORM DAYSHIFT NURSE.
--- NOTE | 2019-10-30 06:55 | NUR ---
TELE/RN NOTES PT. IS LYING IN BED. PT. IS NON-VERBAL, OPENS EYES, VENT/TRACH DEPENDENT. BREATHING EVEN AND UNLABORED ON VENT SETTINGS. PT. WITH EXTERNAL WIRE WRAPPER MACHINE OPERATOR PRESENT AND INTACT CURRENT RHYTHM AFIB HR 102. PT. WITH RIGHT UPPER ARM MIDLINE PRESENT, PATENT AND INTACT. PT. YOSEF CONTINUES TO REFUSE IV FLUIDS. PT. WITH G-TUBE PRESENT, PATENT AND INTACT. PT. YOSEF CONTINUES TO REFUSE TUBE FEEDING. SAFETY, ASPIRATION AND SEIZURE PRECAUTIONS IMPLEMENTED AND IN PLACE. BED LOCKED AND IN LOWEST POSITION, SIDE RAILS UP X3, BED ALARM ON, CALL LIGHT WITHIN REACH, WILL ENDORSE TO DAYSHIFT NURSE FOR CONTINUITY OF CARE.
[2019-10-30 07:15] LABS: BASOPHILS # (AUTO) 0.1 /CMM (0.0-0.2); BASOPHILS % (AUTO) 0.9 % (0.0-2.0); EOSINOPHILS % (AUTO) 1.7 % (0.0-6.0); HEMATOCRIT 28 % (33-45); HEMOGLOBIN 8.2 g/dL (11.5-14.8); LYMPHOCYTES # (AUTO) 0.7 /CMM (0.8-4.8); LYMPHOCYTES % (AUTO) 5.7 % (20.0-44.0); MEAN CORPUSCULAR HGB CONC 30 g/dl (31.0-36.0); MEAN CORPUSCULAR VOLUME 81 fL (82-100); NEUTROPHILS % (AUTO) 83.7 % (43.0-81.0); PLATELET COUNT (AUTO) 359 /CMM (150-450); RED BLOOD CELL COUNT(AUTO) 3.39 MIL/uL (4.0-5.2); WHITE BLOOD COUNT (AUTO) 13.1 K/uL (4.3-11.0)
[2019-10-30 07:41] LABS: CALCIUM, SERUM 7.7 mg/dL (8.5-10.1); CREATININE 0.7 mg/dL (0.6-1.3); MAGNESIUM 2.9 mg/dL (1.8-2.4); POTASSIUM 4.3 mmol/L (3.5-5.1)
[2019-10-30 08:00] VITALS: BP 113/60
--- NOTE | 2019-10-30 08:04 | NUR ---
RN OPENING NOTE PT WAS RECEIVED IN BED AT LOWEST AND LOCKED POSITION WITH SIDE RAILS UPX2, PT BIS NOTED TO BE NONVERBAL BREATHING EVEN AND UNLABORED ON TRACH, NO S/S OF ANY DISTRESS NOTED AT THIS TIME, IV IS PATENT AND INTACT, PER NIGHT RN HAS TURNED OFF IVF AND TUBE FEEDINGS, ON TELE MONITOR, SEIZURE PRECAUTIONS IN PLACE, SAFETY PRECAUTIONS IN PLACE, CALL LIGHT IN REACH, WILL MONITOR ACCORDINGLY
--- NOTE | 2019-10-30 08:30 | NUR ---
RN NOTE PT REFUSED FOR HER TO RECEIVE DIGOXIN AND KEPPRA. INFORMED AND EDUCATED ABOUT THEIR PURPOSE. WILL CONTINUE TO MONITOR PT
[2019-10-30] MEDS: DOCUSATE SODIUM 250 MG CAPSULE PO SCH (08:54)
[2019-10-30] MEDS: PANTOPRAZOLE 40 MG/PACK PACK GT SCH (08:54)
[2019-10-30] MEDS: ASCORBIC ACID 500 MG TABLET GT SCH (08:54)
[2019-10-30] MEDS: MULTIVIT W/MINERALS 1 TAB TABLET GT SCH (08:54)
[2019-10-30] MEDS: METOCLOPRAMIDE HCL 10 MG/10 ML UDC GT SCH ×4 (08:55→21:12)
[2019-10-30] MEDS: CHLORHEXIDINE GLUCONATE 15 ML UDC MM SCH ×2 (08:55→21:15)
[2019-10-30] MEDS: FERROUS SULFATE UDC 300 MG/5 ML UDC PO SCH (08:55)
[2019-10-30] MEDS: LEVETIRACETAM SOL (5 ML) 100 MG/ML UDC GT SCH ×2 (08:56→21:00)
[2019-10-30] MEDS: PROSOURCE / PROSTAT (PYXIS) 30 ML UDC GT SCH ×2 (08:56→16:13)
[2019-10-30] MEDS: METOPROLOL TARTRATE 25 MG TABLET GT SCH ×2 (08:59→21:14)
[2019-10-30] MEDS: DIGOXIN 0.125 MG TABLET GT SCH (08:59)
[2019-10-30] MEDS: PHENOBARBITAL 30 MG TABLET GT SCH ×2 (09:00→21:14)
[2019-10-30] MEDS: LORAZEPAM 1 MG TABLET GT PRN ×2 (10:00→23:32)
[2019-10-30] MEDS: LEVOFLOXACIN 500 MG /D5W 100ML 500 MG in PREMIX 1 EA IV SCH (10:07)
--- NOTE | 2019-10-30 11:45 | NUR ---
RN NOTE BLOOD SUGAR WAS TAKEN AND NOTED TO BE 143, NO INSULIN GIVEN DUE TO REFUSING. INFORMED AND EDUCATED ON THE NEED FOR INSULIN
--- NOTE | 2019-10-30 13:26 | NUR ---
Social service consult requested by Dr. Mckeon in regards to pt's Isidro refusing medications, tube feedings and IV fluids for the pt CUSTOMER SUPPORT ASSISTANT was informed by central office operator Diane that pt's Isidro Ramirez continues to get in the way of treatment. FEMI Landaverde reported that pt's is aggressive and verbally abusive with the staff at [facility]. manager mortgage Diane informed CUSTOMER SUPPORT ASSISTANT that pt's is trying to dictate the care of the pt. He is not putting on proper protective attire required for isolation. Isidro is also refusing procedures that doctors are ordering for the pt. CUSTOMER SUPPORT ASSISTANT filed APS report for neglect. APS intake ID #[id number].
[2019-10-30 16:00] VITALS: BP 84/52
--- NOTE | 2019-10-30 17:22 | NUR ---
RN NOTE PT BS WAS NOTED TO BE 116 AT THIS TIME, NO INSULIN NEEDED PER S/S, WILL CONTINUE TO MONITOR
[2019-10-30 18:12] VITALS: BP 90/47
--- NOTE | 2019-10-30 18:13 | NUR ---
RN CLOSING NOTE PT IN BED AT LOWEST AND LOCKED POSITION WITH SIDE RAILS UPX2, NONVERBAL BREATHING EVEN AND UNLABORED WITH TRACH ON VENT, NO S/S OF ANY DISTRESS NOTED AT THIS TIME, IV IS PATENT AND INTACT, HAS TURNED OFF IVF AND TUBE FEEDINGS AND HAS NOT WANTED ON THROUGH OUT SHIFT, ON TELE MONITOR, SEIZURE PRECAUTIONS IN PLACE, SAFETY PRECAUTIONS IN PLACE, CALL LIGHT IN REACH, ALL NEEDS ATTENDED TO, WILL ENDORSE TO NIGHT RN FOR JESSI.
--- NOTE | 2019-10-30 19:11 | NUR ---
CHANGE OF SHIFT REPORT Patient in bed, non verbal, eyes open. Trach intact, mechanical vent settings remains the same. IVF not infusing, Gtube feeding was OFF, per report patients refusing. Fall, Skin, Aspiration precaution maintained.
[2019-10-30 20:00] VITALS: BP 98/60
--- NOTE | 2019-10-30 20:10 | NUR ---
VERBALIZED UNDERSTANDING IVF, Gtube feeding not infusing, per report due to refusal. Education provided, risk and benefits discussed with , verbalized understanding and agreed. Resumed IVF and Gtube feeding.
[2019-10-30] MEDS: HYDROMORPHONE HCL 2 MG TABLET GT PRN (21:24)
--- NOTE | 2019-10-30 21:25 | NUR ---
DUE MEDS Patient non verbal. at bedside refused to give due medications: Keppra & Heparin injection. Education provided to , reviewed medication indication, benefits and possible side effect, strongly refused not to give. Patient with facial grimace during turning and repositioning, given PRN Dilaudid per request. Fall precaution maintained.
[2019-10-31] VITALS: BP 102/61
[2019-10-31] MEDS: ALBUTEROL FS 2.5 MG/3 ML VIAL.NEB NEB SCH ×4 (00:49→20:19)
--- NOTE | 2019-10-31 03:24 | NUR ---
PT RCVD TRACH'D ON MECHANICAL VENT WITH CHARTED SETTINGS. PT ARNALDO TX WELL. SX DONE. PT TRACH IS PATENT AND SECURE. VENT ALARMS APPEAR TO BE FUNCTIONING PROPERLY. VENT PLUGGED INTO RED OUTLET. AMBU BAG AT BEDSIDE. NO SOB NOTED. Addendum: 10/31/19 at 0324 by ARISTEO SALGUERO RT Amended: Links added.
[2019-10-31] MEDS: HEPARIN SODIUM, PORCINE 5000 UNITS/1 ML VIAL SQ SCH ×3 (05:00→21:22)
[2019-10-31] MEDS: HYDROMORPHONE HCL 2 MG TABLET GT PRN (05:05)
[2019-10-31] MEDS: IV D5W 1,000 ML IV SCH ×2 (05:08→14:27)
--- NOTE | 2019-10-31 05:24 | NUR ---
HEPARIN INJECTION WASTED Heparin indication and possible side effect discussed with patients , verbalized understanding and agreed. After medication was opened and about to administer, patient changed his mind and declined medication to be administered. Risk and benefits reviewed again but patient strongly refused, medication was wasted.
[2019-10-31] MEDS: BLOOD SUGAR DIAGNOSTIC 1 EACH STRIP IN SCH ×4 (05:42→23:39)
[2019-10-31] MEDS: INSULIN REGULAR, HUMAN 100 UNIT/ML 3 ML VIAL SQ PRN ×3 (05:43→23:43)
[2019-10-31] MEDS: MAGNESIUM HYDROXIDE 30 ML UDC GT PRN (05:46)
--- NOTE | 2019-10-31 06:54 | NUR ---
END OF SHIFT REPORT Patient in bed, vent setting remains the same. AFIB controlled in the Tele monitor. IVF infusing, IV antibiotic as scheduled, afebrile overnight. Abdomen presence of Gtube, leaking on stoma site during feeding. Patents continuos interfering with medication and treatment, refusal at times on repositioning and turning. Fall, Skin, Aspiration precaution maintained. Plan for DC planning. Informed MD re: Gtube leaking, will endorse to Oncoming RN.
[2019-10-31 07:10] LABS: BASOPHILS # (AUTO) 0.1 /CMM (0.0-0.2); BASOPHILS % (AUTO) 0.8 % (0.0-2.0); EOSINOPHILS % (AUTO) 1.2 % (0.0-6.0); HEMATOCRIT 27 % (33-45); HEMOGLOBIN 7.9 g/dL (11.5-14.8); LYMPHOCYTES # (AUTO) 0.8 /CMM (0.8-4.8); MEAN CORPUSCULAR HGB CONC 30 g/dl (31.0-36.0); MEAN CORPUSCULAR VOLUME 81 fL (82-100); MONOCYTES # (AUTO) 1.1 /CMM (0.1-1.30); MONOCYTES % (AUTO) 8.8 % (2.0-12.0); NEUTROPHILS # (AUTO) 10.8 /CMM (1.8-8.9); NEUTROPHILS % (AUTO) 83.2 % (43.0-81.0); PLATELET COUNT (AUTO) 341 /CMM (150-450); RED BLOOD CELL COUNT(AUTO) 3.33 MIL/uL (4.0-5.2); WHITE BLOOD COUNT (AUTO) 12.9 K/uL (4.3-11.0)
--- NOTE | 2019-10-31 07:30 | NUR ---
Tele/RN Opening Note Pt received in bed comfortably, stayed with patient last night. Skin is warm to touch, clean/dry, intact mid line site, no noticed g-tube leaking. Noticed bp was 79/45, Dr. Evans aware and received order IV NS 250ml x 1. Pt is on ventilator, no s/s of distress or difficulty breathing observed. keep low position of bed with elevated HOB. Call light within reach, will continue to monitor.
[2019-10-31 07:35] LABS: CALCIUM, SERUM 7.8 mg/dL (8.5-10.1); CREATININE 0.7 mg/dL (0.6-1.3); MAGNESIUM 2.7 mg/dL (1.8-2.4); PHOSPHORUS 4.4 mg/dL (2.5-4.9); POTASSIUM 4.3 mmol/L (3.5-5.1)
[2019-10-31 08:00] VITALS: BP 79/45
[2019-10-31] MEDS: DIGOXIN 0.125 MG TABLET GT SCH (09:00)
[2019-10-31] MEDS: METOPROLOL TARTRATE 25 MG TABLET GT SCH ×2 (09:00→21:00)
[2019-10-31] MEDS: LEVETIRACETAM SOL (5 ML) 100 MG/ML UDC GT SCH ×2 (09:24→21:24)
[2019-10-31] MEDS: PANTOPRAZOLE 40 MG/PACK PACK GT SCH (09:24)
[2019-10-31] MEDS: CHLORHEXIDINE GLUCONATE 15 ML UDC MM SCH ×2 (09:24→21:16)
[2019-10-31] MEDS: FERROUS SULFATE UDC 300 MG/5 ML UDC PO SCH (09:24)
[2019-10-31] MEDS: PHENOBARBITAL 30 MG TABLET GT SCH ×2 (09:25→21:29)
[2019-10-31] MEDS: METOCLOPRAMIDE HCL 10 MG/10 ML UDC GT SCH ×4 (09:25→21:24)
[2019-10-31] MEDS: MULTIVIT W/MINERALS 1 TAB TABLET GT SCH (09:26)
[2019-10-31] MEDS: ASCORBIC ACID 500 MG TABLET GT SCH (09:29)
[2019-10-31] MEDS: DOCUSATE SODIUM 250 MG CAPSULE PO SCH (09:29)
[2019-10-31] MEDS: PROSOURCE / PROSTAT (PYXIS) 30 ML UDC GT SCH ×2 (09:32→17:38)
[2019-10-31] MEDS ORDERED: IV NS 0.9% 250 ML IV ONE (10:00)
[2019-10-31] MEDS ORDERED: IV NS 0.9% 250 ML BAG IV ONE (13:00)
[2019-10-31] MEDS ORDERED: IV NS 0.9% 500 ML BAG IV ONE (14:30)
[2019-10-31 16:00] VITALS: BP_SYST 102; BP_SYST 90; BP_DIAS 47; BP_DIAS 55
--- NOTE | 2019-10-31 17:36 | NUR ---
RT NOTES: PATIENT RECEIVED TRACHED ON PB 840 VENT. ALARMS VERIFIED AND AUDIBLE. VENT PLUGGED INTO RED OUTLET. AMBU BAG AT [facility].
[2019-10-31] MEDS: GLUCERNA 1.2 1,000 ML BOTTLE GT PRN (17:43)
--- NOTE | 2019-10-31 18:30 | NUR ---
Tele/RN Close Note Patient in bed comfortably, does no appease pain or any discomfort. Skin is warm to touch, clean/dry, changed g-tube dressing and noticed small amount if leakage from g tube. Pt is on ventilator, respiratory even and unlabored, no sob or distress observed. Keep lower position of bed with elevated HOB. Call light within reach, will endorse night shit.
--- NOTE | 2019-10-31 19:16 | NUR ---
CHANGE OF SHIFT REPORT Patient in bed, eyes open, non communicative. Trach intact, mechanical vent settings remains the same. IVF infusing, Gtube Glucerna at 60ml/hr, per AM nurse report no leaking on Gtube all day. Fall, Skin, Aspiration precaution maintained.
[2019-10-31 20:10] VITALS: BP 94/49
--- NOTE | 2019-10-31 21:15 | NUR ---
DUE MEDS Gtube feeding Glucerna infusing, zero gastric residual. No noted leaking on GTube. Indication, importance, possible side effect of medication reviewed with patients , verbalized understanding.
--- NOTE | 2019-10-31 21:38 | NUR ---
METOPROLOL NON ADMINISTERED Patient received Bolus NS this morning due to BP decreased. BP 94/49 Pulse 95, Metoprolol not given in line of BP trending down and slowly improving after Bolus NS earlier today.
--- NOTE | 2019-10-31 22:58 | NUR ---
Report given to PAM Floyd for continuity of care.
[2019-11-01] VITALS: BP 90/57
[2019-11-01] MEDS: ALBUTEROL FS 2.5 MG/3 ML VIAL.NEB NEB SCH ×3 (00:06→13:27)
--- NOTE | 2019-11-01 00:09 | NUR ---
RT NOTE TX GIVEN EARLY DUE INCREASED WOB. NO ADVERSE REACTIONS NOTED. PT BREATHING CONTINUES TO IMPROVE WITH TX. WILL CONTINUE TO MONITOR.
[2019-11-01] MEDS: LORAZEPAM 1 MG TABLET GT PRN (00:55)
[2019-11-01] MEDS: IV D5W 1,000 ML IV SCH ×2 (03:20→15:30)
[2019-11-01 03:23] VITALS: BP 108/51
[2019-11-01 03:51] VITALS: BP 94/49
[2019-11-01] MEDS: ALBUTEROL FS 2.5 MG/3 ML VIAL.NEB NEB PRN (04:03)
[2019-11-01] MEDS: HYDROMORPHONE HCL 2 MG TABLET GT PRN (04:30)
[2019-11-01] MEDS: HEPARIN SODIUM, PORCINE 5000 UNITS/1 ML VIAL SQ SCH ×2 (05:10→12:37)
[2019-11-01] MEDS: BLOOD SUGAR DIAGNOSTIC 1 EACH STRIP IN SCH ×2 (06:00→12:37)
[2019-11-01 06:23] LABS: BASOPHILS # (AUTO) 0.1 /CMM (0.0-0.2); BASOPHILS % (AUTO) 0.5 % (0.0-2.0); EOSINOPHILS % (AUTO) 2.1 % (0.0-6.0); HEMATOCRIT 30 % (33-45); HEMOGLOBIN 8.8 g/dL (11.5-14.8); LYMPHOCYTES # (AUTO) 0.7 /CMM (0.8-4.8); LYMPHOCYTES % (AUTO) 4.9 % (20.0-44.0); MEAN CORPUSCULAR HGB CONC 29 g/dl (31.0-36.0); MEAN CORPUSCULAR VOLUME 81 fL (82-100); MONOCYTES # (AUTO) 1.2 /CMM (0.1-1.30); MONOCYTES % (AUTO) 7.9 % (2.0-12.0); NEUTROPHILS # (AUTO) 12.8 /CMM (1.8-8.9); NEUTROPHILS % (AUTO) 84.6 % (43.0-81.0); PLATELET COUNT (AUTO) 377 /CMM (150-450); RED BLOOD CELL COUNT(AUTO) 3.74 MIL/uL (4.0-5.2); WHITE BLOOD COUNT (AUTO) 15.1 K/uL (4.3-11.0)
[2019-11-01 07:07] LABS: ALBUMIN 1.5 g/dL (3.4-5.0); BILIRUBIN,TOTAL 1.3 mg/dL (0.2-1.0); CALCIUM, SERUM 7.6 mg/dL (8.5-10.1); CREATININE 0.7 mg/dL (0.6-1.3); POTASSIUM 4.5 mmol/L (3.5-5.1)
[2019-11-01] MEDS: INSULIN REGULAR, HUMAN 100 UNIT/ML 3 ML VIAL SQ PRN ×2 (07:10→12:36)
--- NOTE | 2019-11-01 07:18 | NUR ---
Received patient last night, at bedside. Night meds and treatment were agreed by and given to patient. Continue to be ventilator dependent. Skin is taut, with generalized water retention. Had large bowel movement this morning. One time given Ativan via gtube and Dilaudid via gtube, as per wishes. Patient did manifest facial grimacing prior to the above medications adminstration.
[2019-11-01 08:00] VITALS: BP 91/63
[2019-11-01] MEDS ORDERED: IV NS 0.9% 500 ML BAG IV ONE (08:00)
--- NOTE | 2019-11-01 08:00 | NUR ---
Rhonda/RN Opening Note Received Patient in bed with ventilator, non verbal, able to responds all stimuli. No s/s of respiratory distress, skin is warm to touch clean/dry, intact mid line site. Patient's refused g-tube feeding and Digoxin. keep lower position if bed with elevated HOB. Call light within reach, will continue to monitor.
[2019-11-01] MEDS: PROSOURCE / PROSTAT (PYXIS) 30 ML UDC GT SCH ×2 (08:29→16:59)
[2019-11-01] MEDS: CHLORHEXIDINE GLUCONATE 15 ML UDC MM SCH (08:31)
[2019-11-01] MEDS: LEVETIRACETAM SOL (5 ML) 100 MG/ML UDC GT SCH (08:31)
[2019-11-01] MEDS: METOCLOPRAMIDE HCL 10 MG/10 ML UDC GT SCH ×3 (08:31→16:59)
[2019-11-01] MEDS: FERROUS SULFATE UDC 300 MG/5 ML UDC PO SCH (08:31)
[2019-11-01] MEDS: MULTIVIT W/MINERALS 1 TAB TABLET GT SCH (08:32)
[2019-11-01] MEDS: PANTOPRAZOLE 40 MG/PACK PACK GT SCH (08:32)
[2019-11-01] MEDS: ASCORBIC ACID 500 MG TABLET GT SCH (08:32)
[2019-11-01] MEDS: PHENOBARBITAL 30 MG TABLET GT SCH (08:33)
[2019-11-01] MEDS: DOCUSATE SODIUM 250 MG CAPSULE PO SCH (08:33)
[2019-11-01] MEDS: METOPROLOL TARTRATE 25 MG TABLET GT SCH (08:35)
[2019-11-01] MEDS: DIGOXIN 0.125 MG TABLET GT SCH (08:36)
[2019-11-01] MEDS: CHLORHEXIDINE GLUCONATE 4% 118 ML BOTTLE TP SCH (09:27)
[2019-11-01 11:00] VITALS: BP 91/49
[2019-11-01 12:00] VITALS: BP 91/42
--- NOTE | 2019-11-01 14:20 | NUR ---
Patient going transfer to Center at [facility],given report Nelly/HAILY, phone number:[phone].
--- NOTE | 2019-11-01 16:00 | NUR ---
Informed /Isidro regarding patient will transfer to Center at [facility](with address) and ambulance will pickler helper patient around 5 pm. Removed midline, no active bleeding observed. Noticed skin redness on right AC, W: 2 cm x L: 0.5 cm picture taken.
[2019-11-01] MEDS: HYDROCODONE/APAP 10/325MG 1 EA TABLET GT PRN (16:59)
--- NOTE | 2019-11-01 17:20 | NUR ---
2 creative services designer arrived for picked up patient, last bp 101/55, p 91, respiratory even and unlabored, skin is warm to touch, clean/dry, provided bed bath, picture taken. pt does no appears grimace or discomfort, in stable condition.
== END 2019-11-01 17:20 | DRG 207 ==
LOC: ER 19:14 → TELE 21:52
PROVIDERS: ADMIT Nurse Practitioner Acute Care; ATTEND Nurse Practitioner Acute Care
PROC: 5A1955Z Respiratory Ventilation, Greater than 96 Consecutive Hours (ICD-10-PCS; principal; 2019-10-22)
PROC: 05H533Z Insertion of Infusion Device into Right Subclavian Vein, Percutaneous Approach (ICD-10-PCS; 2019-10-23)
PROC: 0D20XUZ Change Feeding Device in Upper Intestinal Tract, External Approach (ICD-10-PCS; 2019-10-27)
PROC: 0W9B3ZZ Drainage of Left Pleural Cavity, Percutaneous Approach (ICD-10-PCS; 2019-10-28)
DX: J15.6 Pneumonia due to other Gram-negative bacteria (principal); I50.33 Acute on chronic diastolic (congestive) heart failure; R53.2 Functional quadriplegia; E43 Unspecified severe protein-calorie malnutrition; G93.41 Metabolic encephalopathy; N17.0 Acute kidney failure with tubular necrosis; J96.20 Acute and chronic respiratory failure, unspecified whether with hypoxia or hypercapnia; E87.0 Hyperosmolality and hypernatremia; J94.2 Hemothorax; Z99.11 Dependence on respirator [ventilator] status; D68.69 Other thrombophilia; N04.9 Nephrotic syndrome with unspecified morphologic changes; F11.20 Opioid dependence, uncomplicated; Z43.1 Encounter for attention to gastrostomy; J18.9 Pneumonia, unspecified organism; G40.909 Epilepsy, unspecified, not intractable, without status epilepticus; I11.0 Hypertensive heart disease with heart failure; J44.9 Chronic obstructive pulmonary disease, unspecified; E11.9 Type 2 diabetes mellitus without complications; D72.829 Elevated white blood cell count, unspecified; E87.5 Hyperkalemia; G89.29 Other chronic pain; Z88.0 Allergy status to penicillin; E88.09 Other disorders of plasma-protein metabolism, not elsewhere classified; R91.8 Other nonspecific abnormal finding of lung field; E60 Dietary zinc deficiency; Z93.0 Tracheostomy status; Z79.4 Long term (current) use of insulin; D50.9 Iron deficiency anemia, unspecified; K21.9 Gastro-esophageal reflux disease without esophagitis
CPT/HCPCS: 31720; 36410; 36415; 36600; 71045-TC; 71250-TC; 74018; 76770-TC; 80048-TC; 80053-TC; 80061-TC; 80076-TC; 80162-TC; 80202-TC; 81000-TC; 82272-TC; 82570-TC; 82728-TC; 82784; 82962-TC; 83540-TC; 83735-TC; 83880; 83935-TC; 84100-TC; 84155; 84155-TC; 84165; 84300-TC; 84443-TC; 84484-TC; 85025-TC; 85610-TC; 85730-TC; 86334; 87040-TC; 87070-TC; 87075-TC; 87081-TC; 87086-TC; 88112-TC; 88305-TC; 88312-TC; 93307-TC; 94002; 94003-TC; 94760-TC; 94762-TC; 99082-TC; A4216; A6253; A6403; A7526; A9563; C1751; G0378; J1644; J1650; J1815; J1953; J1956; J2185; J2916; J3370; J3480; J3490; J7030; J7040; J7050; J7060; J7070; J8597; P9047